=== PATIENT | female | born 1955 | race Caucasian/White ===

== ENCOUNTER 2016-05-30 14:22 | Inpatient (IN) ==
[2016-05-30 16:20] LABS: Basophils % 0.3 %; Eosinophils # 0.1 K/mcL (0.0-0.6); Eosinophils % 1.4 %; Hematocrit 36.7 % (35.3-44.9); Hemoglobin 12.3 g/dL (11.5-15.4); Immature Granulocytes % 0.4 % (0-4); Lymphocytes # 2.2 K/mcL (0.6-4.6); Lymphocytes % 31.8 %; Mean Corpuscular HGB Conc 33.5 g/dL (31.6-35.5); Mean Corpuscular Hemoglobin 31.4 pg (28.0-33.3); Mean Corpuscular Volume 93.6 fL (83.0-100.0); Mean Platelet Volume 10.5 fL (9.4-12.4); Monocytes # 0.6 K/mcL (0.0-1.3); Monocytes % 7.8 %; Neutrophils # 4.1 K/mcL (1.6-8.9); Platelet Count 192 K/mcL (140-400); Red Blood Count 3.92 M/mcL (3.82-4.97); Red Cell Distribution Width 15.6 % (11.5-14.5); Segmented Neutrophils % 58.3 %
[2016-05-30 16:30] LABS: Alanine Aminotransferase 12 Units/L (0-55); Albumin 3.6 g/dL (3.5-5.0); Albumin/Globulin Ratio 1.1 (1.1-2.2); Alkaline Phosphatase 59 Units/L (38-126); Aspartate Amino Transferase 14 Units/L (5-34); BUN/Creatinine Ratio 14 (6-26); Bilirubin,Total 0.7 mg/dL (0.2-1.2); Blood Urea Nitrogen 14 mg/dL (7-20); C-Reactive Protein 10 mg/L (Less than 5); Carbon Dioxide 29 mEq/L (19-29); Chloride 106 mEq/L (98-109); Globulin 3.2 g/dL (2.4-3.5); Glucose 103 mg/dL (70-99); Osmolality,Calculated 295 (280-300); Potassium 3.5 mEq/L (3.5-4.5); Sodium 142 mEq/L (136-145); Total Protein 6.8 g/dL (6.0-8.3); eGFR For African Americans > 60 (> 60); eGFR For Non-African Americans 55 (> 60)
[2016-05-30 16:34] LABS: INR 1.1; Prothrombin Time 12.1 Seconds (9.4-12.1)
[2016-05-30 16:36] LABS: Activated Partial Thrombo Time 30.3 Seconds (26.0-36.0)
[2016-05-30] MEDS: Heparin 25,000 UNIT/500 ML D5W 25,000 UNIT/500 ML MLS IVC SCH (17:31)
--- NOTE | 2016-05-30 17:31 | Emergency Department Note ---
Disposition Clinical Impression: Ischemia of right upper extremity Disposition: Admitted As Inpatient Condition: Good Referrals: Fernandez Ken DO [Primary Care Provider] - Forms: Work/School Release, ED Satisfaction Letter General Adult HPI - General Chief complaint: ED General Medical Stated complaint: Dr. Cox wants admitted for ECHO and angiogram Time Seen by Provider: 05/30/16 15:27 Source: patient Limitations: no limitations Nursing Notes Reviewed: Yes Vital Signs Reviewed: Yes - History of Present Illness HPI Narrative: Patient presents to complaint of pain and numbness to her right ring finger. Symptoms started on 05/15/2016. Patient denies any trauma. Patient has been to multiple doctors for this problem and has not found a clear etiology. Patient followed up with Dr. Cox in his office and he sent the patient to respond for further evaluation. Patient denies shortness of breath denies fevers and chills. Patient denies any other signs or symptoms associated. Patient denies any dizziness associated Pain Scale: 0 - Related Data Home Medications Medication Instructions Recorded Confirmed Atenolol [Tenormin] 50 mg PO BID 05/30/16 05/30/16 Flecainide 100 mg PO Q12HR 05/30/16 05/30/16 Folic Acid 1 mg PO BID 05/30/16 05/30/16 Meclizine HCl [Verticalm] 25 mg PO HS 05/30/16 05/30/16 Methotrexate [Otrexup] 25 mg PO ADAMS 05/30/16 05/30/16 Omeprazole [PriLOSEC] 40 mg PO DAILY 05/30/16 05/30/16 Oxycodone HCl/Acetaminophen 1 each PO Q6H PRN 05/30/16 05/30/16 [Percocet 5-325 mg Tablet] PredniSONE 10 mg PO DAILY 05/30/16 05/30/16 Promethazine [Phenergan] 25 mg PO Q6H PRN 05/30/16 05/30/16 Ranitidine HCl [Acid [employer]ician] 150 mg PO HS 05/30/16 05/30/16 Sulfasalazine [Azulfidine] 500 mg PO BID 05/30/16 05/30/16 Venlafaxine XR (24 HR) [Effexor XR] 75 mg PO DAILY 05/30/16 05/30/16 Allergies Allergy/AdvReac Type Severity Reaction Status Date / Time azithromycin [From Zithromax] AdvReac Nausea Verified 05/30/16 14:30 infliximab [From Remicade] AdvReac See Verified 05/30/16 14:30 Comments All systems ED: reviewed and negative except as stated. Past Medical History - Past Medical History Source: patient Medical history: Reports: atrial fibrillation Psychiatric history: Reports: no psych history - Social History Smoking Status: Never smoker Smokeless Tobacco Status: No Alcohol use: Reports: none Drug use: Reports: none Physical Exam - General Limitations: no limitations General appearance: alert, in no apparent distress - Head Head exam: atraumatic, normocephalic, normal inspection - Eye Eye exam: Present: normal appearance, PERRL, EOMI - ENT ENT exam: normal exam, normal oropharynx, mucous membranes moist - Neck Neck exam: Present: normal inspection, full ROM, trachea midline - Chest Chest inspection: Present: normal inspection, symmetric chest wall rise - Respiratory Respiratory exam: Present: normal lung sounds bilaterally - Cardiovascular Cardiovascular exam: Present: irregular rhythm, normal heart sounds - Abdominal Exam Abdominal exam: Present: soft, Non-Tender. Absent: tenderness, distention, guarding, rebound, rigidity - Extremities Exam Extremities exam: Present: other (Swelling of the distal portion of right digit distal phalanx.) - Back Exam Back exam: Present: normal inspection, full ROM. Absent: tenderness - Neurological Exam Neurological exam: Present: alert, oriented X3 - Psychiatric Psychiatric exam: Present: normal affect, normal mood - Skin Skin exam: Present: warm, dry, intact, normal color Course Course Narrative: Discussed this case with Dr. Cxo. He was able to fill an additional history that was missing. He feels the patient has a underlying etiology and he feels that she needs further workup. So will admit patient to the hospitalist service for further care workup Vital Signs Temperature 99.1 F 05/30/16 14:30 Pulse Rate 85 05/30/16 14:30 Respiratory Rate 18 05/30/16 14:30 Blood Pressure 172/95 05/30/16 14:30 O2 Sat by Pulse Oximetry 95 05/30/16 14:30 Temperature 99.1 F 05/30/16 14:30 Pulse Rate 85 05/30/16 14:30 Respiratory Rate 18 05/30/16 14:30 Blood Pressure 172/95 05/30/16 14:30 O2 Sat by Pulse Oximetry 95 05/30/16 14:30 Oxygen Delivery Oxygen Delivery Room Air Medical Decision Making - Differential Diagnosis Limb ischemia, cellulitis, osteomyelitis, trauma - Lab Data Result diagrams: 05/30/16 16:00 05/30/16 16:00 Lab Results 05/30/16 05/30/16 05/30/16 Range/Units 16:00 16:00 16:00 WBC 7.0 (4.3-11.1) K/mcL RBC 3.92 (3.82-4.97) M/mcL Hgb 12.3 (11.5-15.4) g/dL Hct 36.7 (35.3-44.9) % MCV 93.6 (83.0-100.0) fL MCH 31.4 (28.0-33.3) pg MCHC 33.5 (31.6-35.5) g/dL RDW 15.6 H (11.5-14.5) % Plt Count 192 (140-400) K/mcL MPV 10.5 (9.4-12.4) fL Immature Gran % 0.4 (0-4) % Seg Neutrophils % 58.3 % Lymphocytes % 31.8 % Monocytes % 7.8 % Eosinophils % 1.4 % Basophils % 0.3 % Neutrophils # 4.1 (1.6-8.9) K/mcL Lymphocytes # 2.2 (0.6-4.6) K/mcL Monocytes # 0.6 (0.0-1.3) K/mcL Eosinophils # 0.1 (0.0-0.6) K/mcL Basophils # 0.0 (0.0-0.2) K/mcL ESR 21 H (0-15) mm/hr PT 12.1 (9.4-12.1) Seconds INR 1.1 APTT 30.3 (26.0-36.0) Seconds Sodium (136-145) mEq/L Potassium (3.5-4.5) mEq/L Chloride (98-109) mEq/L Carbon Dioxide (19-29) mEq/L BUN (7-20) mg/dL Creatinine (0.57-1.11) mg/dL Est GFR ( Amer) (> 60) Est GFR (Non-Af Amer) (> 60) BUN/Creatinine Ratio (6-26) Glucose (70-99) mg/dL Calculated Osmolality (280-300) Calcium (8.6-10.8) mg/dL Total Bilirubin (0.2-1.2) mg/dL AST (5-34) Units/L ALT (0-55) Units/L Alkaline Phosphatase (38-126) Units/L C-Reactive Protein (Less than 5) mg/L Serum Total Protein (6.0-8.3) g/dL Albumin (3.5-5.0) g/dL Globulin (2.4-3.5) g/dL Albumin/Globulin Ratio (1.1-2.2) 05/30/16 Range/Units 16:00 WBC (4.3-11.1) K/mcL RBC (3.82-4.97) M/mcL Hgb (11.5-15.4) g/dL Hct (35.3-44.9) % MCV (83.0-100.0) fL MCH (28.0-33.3) pg MCHC (31.6-35.5) g/dL RDW (11.5-14.5) % Plt Count (140-400) K/mcL MPV (9.4-12.4) fL Immature Gran % (0-4) % Seg Neutrophils % % Lymphocytes % % Monocytes % % Eosinophils % % Basophils % % Neutrophils # (1.6-8.9) K/mcL Lymphocytes # (0.6-4.6) K/mcL Monocytes # (0.0-1.3) K/mcL Eosinophils # (0.0-0.6) K/mcL Basophils # (0.0-0.2) K/mcL ESR (0-15) mm/hr PT (9.4-12.1) Seconds INR APTT (26.0-36.0) Seconds Sodium 142 (136-145) mEq/L Potassium 3.5 (3.5-4.5) mEq/L Chloride 106 (98-109) mEq/L Carbon Dioxide 29 (19-29) mEq/L BUN 14 (7-20) mg/dL Creatinine 1.02 (0.57-1.11) mg/dL Est GFR ( Amer) > 60 (> 60) Est GFR (Non-Af Amer) 55 L (> 60) BUN/Creatinine Ratio 14 (6-26) Glucose 103 H (70-99) mg/dL Calculated Osmolality 295 (280-300) Calcium 9.0 (8.6-10.8) mg/dL Total Bilirubin 0.7 (0.2-1.2) mg/dL AST 14 (5-34) Units/L ALT 12 (0-55) Units/L Alkaline Phosphatase 59 (38-126) Units/L C-Reactive Protein 10 H (Less than 5) mg/L Serum Total Protein 6.8 (6.0-8.3) g/dL Albumin 3.6 (3.5-5.0) g/dL Globulin 3.2 (2.4-3.5) g/dL Albumin/Globulin Ratio 1.1 (1.1-2.2)
[2016-05-30] MEDS ORDERED: Acetaminophen 325 MG TABLET PO PRN (18:53)
[2016-05-30] MEDS ORDERED: Ondansetron 4 MG/2 ML VIAL IVP PRN (18:53)
[2016-05-30] MEDS ORDERED: Naloxone 0.4 MG/ML INJ IVP PRN (18:53)
--- NOTE | 2016-05-30 19:11 | Event Note ---
Date of Encounter: 05/30/16 Time of Encounter: 18:58 Patient seen and examined with nurse practitioner. Agree with assessment and plan. Patient with long-standing history over each of fibrillation multiple anticoagulation or antiplatelet medications presents with ischemia involving the distal phalanx of the right ring finger in the form of fixed color changes coldness pain paresthesia limitation of movement. There is decrease capillary circulation on exam review pulsations is intact. Possibility of this presentation include acute ischemia related to embolism from atrial fibrillation. Other possibility include vasculitis. She has underlying rheumatoid arthritis. will check inflammatory markers. .Presentation not typical for raynauld's phenomena as symptoms have been constant over the past 2 weeks no fluctuation in symptoms and signs and no relation with cold or warm temperature. Patient will be started on high dose heparin drip, aspirin and statin. Vascular surgery consultation. She will need an angiography for evaluation of hand circulation.
[2016-05-30] MEDS ORDERED: *HR* Heparin 5,000 UNIT/ML VIAL IVP PRN ×2 (19:13)
[2016-05-30] MEDS ORDERED: NIFEdipine XL (24 HR) 30 MG TAB.ER.24 PO SCH (19:30)
--- NOTE | 2016-05-30 19:32 | Internal Med History&Physical ---
Date of Encounter: 05/30/16 Time of Encounter: 18:30 Assessment and Plan (1) Ischemia of finger Current visit: Yes Status: Acute 1 patient has been experiencing discoloration as well as paresthesia and pain to right ring finger. Possibly related to embolic since patient has a history of atrial fibrillation and is not on any anticoagulation. Also could be related to vasculitis patient has a history of rheumatoid arthritis. Patient was seen by Dr. Cox today she has been initiated on a heparin drip 2 consult vascular-Dr. Cox 3 we will give baby aspirin 4 we will make patient nothing by mouth after midnight for possible procedures in a.m. (2) Hypertension Current visit: Yes Status: Chronic 1 we will hold atenolol for now will start on Norvasc goal was to maintain systolic less than 140 Qualifiers: Hypertension type: essential hypertension Qualified Code(s): I10 - Essential (primary) hypertension (3) Atrial fibrillation Current visit: Yes Status: Chronic 1 presently in sinus rhythm we will continue with flecainide patient is not on any anticoagulation. We will give aspirin patient placed on heparin drip 2 continuous cardiac monitoring 3 obtain EKG Qualifiers: Atrial fibrillation type: paroxysmal Qualified Code(s): I48.0 - Paroxysmal atrial fibrillation (4) Rheumatoid arthritis Current visit: Yes Status: Chronic 1 continue with home medications Qualifiers: Rheumatoid arthritis location: hand Rheumatoid factor presence: unspecified presence Laterality: bilateral Qualified Code(s): M06.9 - Rheumatoid arthritis, unspecified Internal Medicine - H&P: HPI Chief complaint: discolored finger Admitted From: Emergency Dept Plans for Post Hospital Care: Home History of present illness: Ms. Mann is a 60 year old female with a past medical hx of RA, OA fibromyalagia, HTN, afib PUD. According to the patient on May 13 she noticed that the tip of R ring finger was discolored and painful, she went to the ED in [place], who took xrays and informed her that it was a bruise. The finger continued to be painful discolored and cool to touch. She went to her PCP who sent her to orthopedics, who then advised her to see vascular. She saw Dr Cox today who requested that the patient be admitted to a [facility] for further workup and evaluation. Patient denies any recent trauma history coagulopathy she is not on any anticoagulation and has a history atrial fibrillation. She was in her usual state of health prior to this incident denies any chest pain shortness of breath nausea vomiting diarrhea chills fevers. ER lab work revealed no leukocytosis chemistries and coags unremarkable CRP was 10. ER physician did speak with Dr. Cox he requested patient started on heparin drip and he will see patient upon consult. Presently the patient denies any chest pain or shortness of breath. Noted the patient sitting on side of bed lower extremities are ruborous toes are cool to touch. Once back in bed patient's color returns to our extremity however do note that tip of second toes bilaterally slightly cyanotic. Pedal pulses are strong bilaterally. Upon assessment note excuse me involving distal phalanx of the right ring finger fixed color changes tip cool to touch pain paresthesia limitation of movement. There is decreased capillary circulation strong radial pulses. I reviewed this case with Dr. Stack who agrees with plan it Past Med Surg Social Fam HX - Past Medical History Medical history: atrial fibrillation, fibromyalgia Psychiatric history: no psych history - Social History Smoking Status: Never smoker Smokeless Tobacco Status: No Alcohol use: none Drug use: none - Family History Father Living Status: Hx Family Cardiac Disorders: Yes (AK,HTN) Internal Medicine - H&P: Meds Atenolol [Tenormin] 50 mg PO BID 05/30/16 [History] Flecainide 100 mg PO Q12HR 05/30/16 [History] Folic Acid 1 mg PO BID 05/30/16 [History] Meclizine HCl [Verticalm] 25 mg PO HS 05/30/16 [History] Methotrexate [Otrexup] 25 mg PO ADAMS 05/30/16 [History] Omeprazole [PriLOSEC] 40 mg PO DAILY 05/30/16 [History] Oxycodone HCl/Acetaminophen [Percocet 5-325 mg Tablet] 1 each PO Q6H PRN [History] PredniSONE 10 mg PO DAILY 05/30/16 [History] Promethazine [Phenergan] 25 mg PO Q6H PRN 05/30/16 [History] Ranitidine HCl [Acid After School Teacher] 150 mg PO HS 05/30/16 [History] Sulfasalazine [Azulfidine] 500 mg PO BID 05/30/16 [History] Venlafaxine XR (24 HR) [Effexor XR] 75 mg PO DAILY 05/30/16 [History] Allergies azithromycin [From Zithromax] Adverse Reaction (Verified 05/30/16 14:30) Nausea infliximab [From Remicade] Adverse Reaction (Verified 05/30/16 14:30) See Comments All Systems PM: A 10-system review of systems was performed and is negative for pertinent findings except as documented above in the HPI. - Constitutional Constitutional: no chills, no fever(s), no night sweats - EENT Eyes: no change in vision, no discharge, no pain, no photophobia Nose, mouth and throat: no dysphagia, no nasal discharge, no neck pain, no sore throat - Cardiovascular Cardiovascular ROS IM: no chest pain, no diaphoresis, no dyspnea, no lightheadedness, no palpitations, no syncope - Respiratory Respiratory: no cough, no dyspnea, no wheezing, no excessive phlegm production - Gastrointestinal Gastrointestinal: no abdominal pain, no diarrhea, no hematemesis, no hematochezia, no melena, no nausea, no vomiting - Genitourinary Genitourinary: no change in urinary stream, no dysuria, no flank pain, no hematuria - Musculoskeletal Musculoskeletal ROS IM: no numbness, no tingling - Integumentary Additional comments: 1 discoloration to right ring finger - Neurological Neurological ROS: no confusion, no convulsions, no focal weakness, no numbness, no tingling, no tremor(s) - Hematologic/Lymphatic Hematologic/Lymphatic: no easy bruising - Constitutional Vitals: Temp Pulse Resp BP Pulse Ox 99.1 F 62 97 161/88 18 05/30/16 14:30 05/30/16 18:22 05/30/16 18:22 05/30/16 18:22 05/30/16 18:22 General appearance: Present: A&O X 3, answers questions appropriately - Head Head exam: Present: atraumatic, normocephalic - Eye Eye exam: Present: PERRL, conjuntiva pink, sclera anicteric Pupils: Present: PERRL - Neck Neck exam general surgery: Present: supple, trachea midline. Absent: lymphadenopathy - Respiratory Respiratory exam: Present: CTAB. Absent: accessory muscle use, rales, rhonchi, wheezes - Cardiovascular Cardiovascular exam: Present: RRR, +S1, +S2. Absent: diastolic murmur, gallop, rubs, systolic murmur - GI/Abdominal GI/Abdominal exam: Present: normal bowel sounds, soft, no peritoneal signs. Absent: distended, tenderness - Extremities Exam Extremities exam: Present: tenderness, warm, radial pulses palpable and symetrical. Absent: calf tenderness, cyanotic, pedal edema Additional comments: discoloration to right ring finger as well as to second toe to feet bilaterally - Neurological Exam Neurological exam: Present: CN II-XII intact, oriented X3, no focal deficits. Absent: pronater drift, facial droop, speech deficit - Skin Skin exam: Present: dry, intact Internal Med - H&P Results - Labs CBC & Chem 7: 05/30/16 19:30 05/30/16 16:00
[2016-05-30 19:40] LABS: Hemoglobin 12.9 g/dL (11.5-15.4); Mean Corpuscular HGB Conc 33.1 g/dL (31.6-35.5); Mean Corpuscular Hemoglobin 31.4 pg (28.0-33.3); Mean Corpuscular Volume 94.9 fL (83.0-100.0); Mean Platelet Volume 10.6 fL (9.4-12.4); Platelet Count 227 K/mcL (140-400); Red Blood Count 4.11 M/mcL (3.82-4.97); Red Cell Distribution Width 15.7 % (11.5-14.5)
[2016-05-30 19:48] LABS: INR 1.1; Prothrombin Time 12.4 Seconds (9.4-12.1)
[2016-05-30 19:51] LABS: Activated Partial Thrombo Time 38.8 Seconds (26.0-36.0)
[2016-05-30] MEDS: sulfaSALAzine 500 MG TABLET PO SCH (20:32)
[2016-05-30] MEDS: Famotidine 20 MG TABLET PO SCH (20:33)
[2016-05-30] MEDS: Folic Acid 1 MG TABLET PO SCH (20:33)
[2016-05-30] MEDS: Aspirin Enteric Coated 81 MG Tablet PO SCH (20:34)
[2016-05-30] MEDS: *HR* HYDROcodone/Acet 5/325 mg TABLET PO PRN (22:17)
[2016-05-31 01:10] LABS: Basophils % 0.3 %; Eosinophils # 0.1 K/mcL (0.0-0.6); Eosinophils % 1.5 %; Hematocrit 36.4 % (35.3-44.9); Hemoglobin 11.8 g/dL (11.5-15.4); Immature Granulocytes % 0.3 % (0-4); Lymphocytes # 2.5 K/mcL (0.6-4.6); Lymphocytes % 37.2 %; Mean Corpuscular HGB Conc 32.4 g/dL (31.6-35.5); Mean Corpuscular Hemoglobin 31.5 pg (28.0-33.3); Mean Corpuscular Volume 97.1 fL (83.0-100.0); Mean Platelet Volume 10.9 fL (9.4-12.4); Monocytes # 0.5 K/mcL (0.0-1.3); Monocytes % 7.9 %; Neutrophils # 3.5 K/mcL (1.6-8.9); Platelet Count 157 K/mcL (140-400); Red Blood Count 3.75 M/mcL (3.82-4.97); Red Cell Distribution Width 15.6 % (11.5-14.5); Segmented Neutrophils % 52.8 %
[2016-05-31 01:23] LABS: BUN/Creatinine Ratio 13 (6-26); Blood Urea Nitrogen 14 mg/dL (7-20); Carbon Dioxide 26 mEq/L (19-29); Chloride 106 mEq/L (98-109); Glucose 131 mg/dL (70-99); Osmolality,Calculated 294 (280-300); Potassium 3.4 mEq/L (3.5-4.5); Sodium 141 mEq/L (136-145); eGFR For African Americans > 60 (> 60); eGFR For Non-African Americans 53 (> 60)
[2016-05-31] MEDS: *HR* Morphine 2 MG/ML SYRINGE IVP PRN (02:01)
[2016-05-31] MEDS ORDERED: *HR* Labetalol 20 MG/4 ML SYRINGE IVP PRN (02:17)
[2016-05-31 08:34] LABS: Activated Partial Thrombo Time 196.8 Seconds (26.0-36.0)
[2016-05-31 08:38] LABS: Heparin anti-factor XA UFH 0.93 IU/mL (0.30-0.70)
[2016-05-31] MEDS: Aspirin Enteric Coated 81 MG Tablet PO SCH ×2 (09:13→09:20)
[2016-05-31] MEDS: predniSONE 10 MG TABLET PO SCH (09:19)
[2016-05-31] MEDS: sulfaSALAzine 500 MG TABLET PO SCH ×2 (09:20→21:16)
[2016-05-31] MEDS: Venlafaxine XR (24 HR) 75 MG CAP.ER.24H PO SCH (09:20)
[2016-05-31] MEDS: *HR* HYDROcodone/Acet 5/325 mg TABLET PO PRN ×2 (09:20→21:16)
[2016-05-31] MEDS: Folic Acid 1 MG TABLET PO SCH ×2 (09:20→21:16)
--- NOTE | 2016-05-31 10:01 | Vascular/Endovasc Consult Note ---
Date of Encounter: 05/31/16 Time of Encounter: 09:58 Assessment and Plan (1) Ischemia of finger Current Visit: Yes Status: Acute Acute onset of right ring finger ischemia dating to May 13. Recommend echocardiogram Recommend cardiology consultation for atrial fibrillation and further recommendations regarding treatment and anticoagulation Recommend orthopedic hand surgery consultation for long-term follow-up for ischemic finger I will consider angiography of right upper extremity extremity and hand tomorrow pending the results of further workup and echocardiogram. The patient may be a candidate for catheter directed thrombo-lysis or intra-arterial vasodilator. The patient may have topical nitroglycerin applied to finger once the patient has been seen by the other consultants. - History of Present Illness Consult date: 05/31/16 Consult reason: Ischemic right ring finger Chief complaint: Discoloration and pain of right ring finger History of present illness: Ms. Mann is a 60 year old female Who was seen in my office yesterday on referral from her primary care office in [facility] for urgent evaluation of right hand symptoms. The patient states that she had an abrupt onset of skin changes and pain in the right ring finger on May 13. This is been progressive. She has had significant discomfort that has been unrelenting since that time. She has seen a total of 4 different physicians including urgent care, emergency room, primary care, and orthopedics at the [facility]. The patient denies any history of trauma to this area. She has not had any previous similar symptoms. The patient does have a history of atrial fibrillation dating back to about 2007. This is presently controlled with atenolol and [place] and applied. The patient is unaware of previous treatments. She does not know the results of any recent echocardiograms. The patient was not placed on anticoagulation for her atrial fibrillation. The patient has not had any noninvasive testing of the hand but she did have x- rays which showed diffuse arthritic changes. She does have a history of rheumatoid arthritis. Past Med Surg Social Fam HX - Past Medical History Medical history: atrial fibrillation, fibromyalgia Psychiatric history: no psych history - Past Surgical History Surgical History: cholecystectomy, knee replacement - Social History Smoking Status: Never smoker Smokeless Tobacco Status: No Alcohol use: none Drug use: none - Family History Father Living Status: Hx Family Cardiac Disorders: Yes (OR,HTN) Medications and Allergies Atenolol [Tenormin] 50 mg PO BID 05/30/16 [History] Flecainide 100 mg PO Q12HR 05/30/16 [History] Folic Acid 1 mg PO BID 05/30/16 [History] Meclizine HCl [Verticalm] 25 mg PO HS 05/30/16 [History] Methotrexate [Otrexup] 25 mg PO ADAMS 05/30/16 [History] Omeprazole [PriLOSEC] 40 mg PO DAILY 05/30/16 [History] Oxycodone HCl/Acetaminophen [Percocet 5-325 mg Tablet] 1 each PO Q6H PRN [History] PredniSONE 10 mg PO DAILY 05/30/16 [History] Promethazine [Phenergan] 25 mg PO Q6H PRN 05/30/16 [History] Ranitidine HCl [Acid Test Lead] 150 mg PO HS 05/30/16 [History] Sulfasalazine [Azulfidine] 500 mg PO BID 05/30/16 [History] Venlafaxine XR (24 HR) [Effexor XR] 75 mg PO DAILY 05/30/16 [History] Allergies azithromycin [From Zithromax] Adverse Reaction (Verified 05/30/16 14:30) Nausea infliximab [From Remicade] Adverse Reaction (Verified 05/30/16 14:30) See Comments All Systems Review: A 10-system review of systems was performed and is negative for pertinent findings except as documented above in the HPI. Exam Vital Signs, Last 4 Hours Temp Pulse Resp BP Pulse Ox 05/31/16 09:03 95 05/31/16 06:44 97.9 F 68 18 114/62 95 General: Present: Conversant, Well developed, Well nourished, Other (Obese) HEENT: Present: Atraumatic, Normocephaly Cardiac: Present: Reg Rate and Rhythm, Normal S1 and S2 Lungs: Present: Normal Breath Sounds Neuro: Present: Alert and responsive, No focal deficits noted Abdomen: Present: Soft, Non-tender Vascular: Present: Pulse, normal, Cyanosis (Cyanosis of left distal phalanx. The mid and proximal phalanx are improved in color since her clinic visit yesterday and since initiation of heparin.) Consult Discharge Plan - Plan Referrals: Fernandez Ken DO [Primary Care Provider] -
[2016-05-31] MEDS ORDERED: methylPREDNISolone 125 MG/2 ML VIAL IVP ONE (10:31)
[2016-05-31] MEDS ORDERED: D5% in Water 1,000 ML IVC PRN (10:53)
[2016-05-31] MEDS ORDERED: Dextrose Gel 15 GM PO PRN ×2 (10:53)
[2016-05-31] MEDS ORDERED: *HR* Dextrose 50 % in Water (Syg) 50 ML SYRINGE IVP PRN (10:53)
[2016-05-31] MEDS: Insulin LISPRO 300 UNITS/3 ML VIAL SQ SCH ×3 (12:14→21:16)
--- NOTE | 2016-05-31 12:43 | Cardiology Consult Note ---
Date of Encounter: 05/31/16 Time of Encounter: 12:39 Assessment and Plan (1) Ischemia of right upper extremity Current Visit: Yes Status: Acute Per Cardiology: Vascular following. Patient reports possible right arm angiogram tomorrow. (2) PAF (paroxysmal atrial fibrillation) Current Visit: Yes Status: Chronic Per Cardiology: Past history of paroxysmal atrial fibrillation with rhythm control strategy of flecainide be managed by her primary refining engineer Dr. Laguerre in [place]. ECG shows sinus rhythm at 69 with QRS 138 ms and QT/QTC 450/468 ms. Echo pending. Regarding long-term anticoagulation, [id number]= 1 (Female). Patient apparently unaware of need for anticoagulation for her afib and on flecanide. She reports she's been instructed to take aspirin by her primary refining engineer, but has not been taking for some time due to reported "eye clots" with aspirin. Currently being started on IV heparin drip with concerns of right ring finger thrombosis. Discussed and reviewed with Dr. Antonio, we'll need to address long- term anticoagulation prior to discharge. Discussion w patient/family: The assessment and plan as outlined above was discussed with the patient who expressed understanding and agreement. All questions were answered. Thank you for involving us in the care of your patient. Please call with any questions. History of Present Illness Consult date: 05/31/16 Requesting physician: Christopher Cox Consult reason: Hx of Afib Chief complaint: R finger pain History of present illness: Previous records reviewed: "Ms. Mann is a 60 year old female with a past medical hx of RA, OA fibromyalagia, HTN, afib PUD. According to the patient on May 13 she noticed that the tip of R ring finger was discolored and painful, she went to the ED in [place], who took xrays and informed her that it was a bruise. The finger continued to be painful discolored and cool to touch. She went to her PCP who sent her to orthopedics, who then advised her to see vascular. She saw Dr Cox today who requested that the patient be admitted to a [facility] for further workup and evaluation. Patient denies any recent trauma history coagulopathy she is not on any anticoagulation and has a history atrial fibrillation. She was in her usual state of health prior to this incident denies any chest pain shortness of breath nausea vomiting diarrhea chills fevers ". Cardiology consult d/t hx of afib and not on AC. Patient reports known history of atrial fibrillation and on flecainide being managed by her primary refining engineer Dr. Laguerre in [place]. Patient confirms history of present illness as above. She denies any chest pain, shortness of breath, palpitations. Reports has not been on anticoagulation in terms of Coumadin or DOACs. She reports her primary refining engineer structure her take aspirin, however has been unable to take due to developing "blood clots in her eyes". She reports pending follow-up with her primary refining engineer scheduled actually tomorrow. She denies any history of CAD, ICD, pacemaker, or history of CVA or TIA. Past Med Surg Social Fam HX - Past Medical History Attestation: Yes The following information was validated with the patient. Source: patient, old records reviewed Medical history: atrial fibrillation, fibromyalgia Psychiatric history: no psych history - Past Surgical History Surgical History: cholecystectomy, knee replacement - Social History Smoking Status: Never smoker Smokeless Tobacco Status: No Alcohol use: none Drug use: none - Family History Father Living Status: Hx Family Cardiac Disorders: Yes (ID,HTN) Medications and Allergies Atenolol [Tenormin] 50 mg PO BID 05/30/16 [History] Flecainide 100 mg PO Q12HR 05/30/16 [History] Folic Acid 1 mg PO BID 05/30/16 [History] Meclizine HCl [Verticalm] 25 mg PO HS 05/30/16 [History] Methotrexate [Otrexup] 25 mg PO ADAMS 05/30/16 [History] Omeprazole [PriLOSEC] 40 mg PO DAILY 05/30/16 [History] Oxycodone HCl/Acetaminophen [Percocet 5-325 mg Tablet] 1 each PO Q6H PRN [History] PredniSONE 10 mg PO DAILY 05/30/16 [History] Promethazine [Phenergan] 25 mg PO Q6H PRN 05/30/16 [History] Ranitidine HCl [Acid Life Skills Educator] 150 mg PO HS 05/30/16 [History] Sulfasalazine [Azulfidine] 500 mg PO BID 05/30/16 [History] Venlafaxine XR (24 HR) [Effexor XR] 75 mg PO DAILY 05/30/16 [History] Allergies azithromycin [From Zithromax] Adverse Reaction (Verified 05/30/16 14:30) Nausea infliximab [From Remicade] Adverse Reaction (Verified 05/30/16 14:30) See Comments All Systems Review: A 10-system review of systems was performed and is negative for pertinent findings except as documented above in the HPI. - Cardiovascular Cardiovascular: as per HPI - Musculoskeletal Musculoskeletal: other (R ring finger pain and discoloration) Physical Examination Vital Signs, Last 4 Hours Temp Pulse Resp BP Pulse Ox 05/31/16 10:53 99.1 F 72 19 116/61 98 05/31/16 09:03 95 General: Conversant, No Apparent Distress HEENT: Atraumatic, Normocephaly, Mucus Membranes Moist Cardiac: Reg Rate and Rhythm, Normal S1 and S2, No Murmur Lungs: Normal Breath Sounds, No Wheeze, Rales, Rhonchi Neuro: Alert and responsive, No focal deficits noted Abdomen: Soft, Non-Tender Skin: Other (R ring finger with blusih discoloration) Extremities: No Edema, Normal Pulses Results 05/31/16 01:03 05/31/16 01:03 Lab Results Laboratory Tests 05/30/16 05/30/16 05/31/16 16:00 16:00 07:42 INR 1.1 AST 14 ALT 12 Troponin I 0.01 Impressions Spine Flexion/Extension X-Ray 05/31/16 09:29 IMPRESSION: 1. Normal cervical spine alignment with mild C6-7 degenerative disc and joint disease. 2. Normal alignment with no evidence of instability on flexion/extension. 3. No acute osseous abnormality or evidence of erosions. D/ / 05/31/2016 10:27:33 Etienne Brown MD / Bernadette Hsu Interpreting Provider: Etienne Brown MD Finger X-Ray 05/31/16 10:43 IMPRESSION: Negative radiographs of the right 4th finger D/ / Milton Wooten MD / Milton Wooten MD Interpreting Provider: Milton Wooten MD Active Medications Acetaminophen (Tylenol) 650 mg PO Q6HR PRN PRN Reason: Mild Pain (1-3) Stop: 11/29/16 18:54 Acetaminophen/Hydrocodone Bitart ([place] 5-325 Mg) 1 tab PO Q4HR PRN PRN Reason: Moderate Pain (4-6) Stop: 11/29/16 18:54 Last Admin: 05/31/16 09:20 Dose: 1 tab Aspirin (Aspirin Ec) 81 mg PO DAILY JESUS Stop: 11/29/16 19:16 Last Admin: 05/31/16 09:20 Dose: 81 mg Dextrose/Water (Dextrose 50% (Syg)) 25 ml IVP AD PRN PRN Reason: Hypoglycemia Stop: 11/30/16 10:54 Famotidine (Pepcid) 20 mg PO HS [facility] Stop: 11/29/16 21:01 Last Admin: 05/30/16 20:33 Dose: 20 mg Flecainide Acetate (Flecainide) 100 mg PO Q12HR JESUS Stop: 11/30/16 06:01 Last Admin: 05/31/16 05:43 Dose: 100 mg Folic Acid (Folic Acid) 1 mg PO BID [facility] Stop: 11/29/16 21:01 Last Admin: 05/31/16 09:20 Dose: 1 mg Glucagon (Glucagen) 1 mg IM ONCE PRN PRN Reason: Hypoglycemia Stop: 11/30/16 10:54 Glucose (Gluctose) 15 gm PO ONCE PRN PRN Reason: Hypoglycemia Stop: 11/30/16 10:54 Glucose (Gluctose) 30 gm PO ONCE PRN PRN Reason: Hypoglycemia Stop: 11/30/16 10:54 Heparin Sodium (Porcine) (Heparin) 8,400 unit 70 unit/kg (8400 unit) IVP Q6HR PRN PRN Reason: SEE COMMENTS Stop: 11/29/16 19:14 Last Admin: 05/31/16 01:43 Dose: 7,239.36 unit Heparin Sodium (Porcine) (Heparin) 4,200 unit 35 unit/kg (4200 unit) IVP Q6H PRN PRN Reason: SEE COMMENTS Stop: 11/29/16 19:14 Heparin Sodium/Dextrose (Heparin 25,000 Unit/500 Ml D5w) 25,000 unit in 500 mls @ 33.784 mls/hr IVC .[id number] JESUS; 14 UNIT/KG/HR PRN Reason: Protocol Stop: 11/29/16 17:16 Last Titration: 05/31/16 10:07 Dose: 8.66 unit/kg/hr, 20.9 mls/hr Dextrose (Dextrose 5%) 1,000 mls @ 100 mls/hr IVC .Q10H PRN PRN Reason: HYPOGLYCEMIA Stop: 11/30/16 10:54 Insulin Human Lispro (Humalog) 0 units SQ TIDAC JESUS PRN Reason: Protocol Stop: 11/30/16 11:31 Last Admin: 05/31/16 12:14 Dose: 2 units Insulin Human Lispro (Humalog) 0 units SQ HS JESUS PRN Reason: Protocol Stop: 11/30/16 21:01 Morphine Sulfate (Morphine Sulfate) 2 mg IVP Q4HR PRN PRN Reason: Severe Pain (7-10) Stop: 11/29/16 18:54 Last Admin: 05/31/16 02:01 Dose: 2 mg Naloxone HCl (Narcan) 0.4 mg IVP Q2MIN PRN PRN Reason: Opioid Reversal Stop: 11/29/16 18:54 Nifedipine (Procardia Xl) 60 mg PO DAILY [facility] PRN Reason: Protocol Stop: 11/30/16 20:31 Omeprazole (Prilosec) 40 mg PO DAILY [facility] Stop: 11/30/16 09:01 Last Admin: 05/31/16 09:20 Dose: 40 mg Ondansetron HCl (Zofran) 4 mg IVP Q8HR PRN PRN Reason: Nausea And Vomiting Stop: 11/29/16 18:54 Last Admin: 05/30/16 22:17 Dose: 4 mg Prednisone (Prednisone) 10 mg PO DAILY [facility] Stop: 11/30/16 09:01 Last Admin: 05/31/16 09:19 Dose: 10 mg Sulfasalazine (Sulfasalazine) 500 mg PO BID [facility] Stop: 11/29/16 21:01 Last Admin: 05/31/16 09:20 Dose: 500 mg Venlafaxine HCl (Effexor Xr) 75 mg PO DAILY [facility] Stop: 11/30/16 09:01 Last Admin: 05/31/16 09:20 Dose: 75 mg - Imaging and Cardiology Echo: pending - EKG Interpretation EKG results cardiology: personally reviewed, normal ECG, sinus rhythm Consult Discharge Plan - Plan Referrals: Fernandez Ken DO [Primary Care Provider] - 06/07/16 2:40 pm
--- NOTE | 2016-05-31 13:25 | Internal Med Progress Note ---
<Tanvir Mckenize - Last Filed: 05/31/16 17:16> Date of Encounter: 05/31/16 Time of Encounter: 09:20 - Assessment and plan (1) Ischemia of finger Current Visit: Yes Status: Acute Assessment and plan: -Patient was seen and examined today by vascular surgery (Dr. Cox) who recommend the followin) Echocardiogram 2) Cardiology consultation for atrial fibrillation and further ecommendations regarding treatment and anticoagulation. 3) Orthopedic Hand surgery consultation for long-term follow-up for this ischemic finger. Will consider angiograpy of the right upper extremity and hand tomorrow pending the results of further workup and echocardiogram. Patient may be a candidate for catheter directed thrombo-lysis or intra-arterial vasodilator. I consulted orthopedics and cardiology. Patient is currently on a calcium channel socorro. we may also consider nitropaste. (2) PAF (paroxysmal atrial fibrillation) Current Visit: Yes Status: Chronic Assessment and plan: -Patient has a history of paroxysmal atrial fibrillation controlled with Flecainide 100mg PO q12hr. currently in sinus rhythm. - Patient was not on anticoagulation prior to hospitalization. Patient now on weight base Heparin. -Pending cardiology recommendation (3) Elevated partial thromboplastin time (PTT) Current Visit: Yes Status: Acute Assessment and plan: - Elevated today at 196.8 - Heparin was held and will be resumed per protocol (4) Rheumatoid arthritis Current Visit: Yes Status: Chronic Assessment and plan: - Patient follows with Rheumatology at [facility] - Is on methotrexate 25mg PO, Prednisone 10mg PO qday and Sulfasalazine 500mg PO BID for her RA - Denies any known flares in the past couple of months - Due to the potential for General anesthesia/ procedures to her ischemic finger and history of Rheumatoid arthritis, we will obtain flexion and extension views of the cervical spine to look for any potential atlanto-axial instability. Qualifiers: Rheumatoid arthritis location: hand Rheumatoid factor presence: unspecified presence Laterality: bilateral Qualified Code(s): M06.9 - Rheumatoid arthritis, unspecified (5) Chest pain Current Visit: Yes Status: Acute Assessment and plan: - Patient describes a non-descript, non-radiating diffuse chest pain over the anterior aspect of her thoracic wall. The pain is reproducible with palpation and respirations. She is at higher risk for CAD given her RA. however pain is noncardiac and reproducible on exam. Additionally there is a pleuritic component to the pain. - Will get EKG and Troponin X 1 Qualifiers: Qualified Code(s): R07.9 - Chest pain, unspecified (6) Neck pain Current Visit: Yes Status: Acute Assessment and plan: -The patient's neck pain sounds as though this could possibly be an RA flair. No fever, confusion, alteration in mentation to suggest an infectious etioogy. - In addition to her home RA medications, we will add a one time dose of Methyprednisolone 80mg IVP to see if that resolves her pain. - Cervical spine flexion/extension were normal with mild C6-7 degenerative disc and joint disease. Normal alignment with no evidence of instability on flexion/ extension. - We will continue to monitor. (7) Fibromyalgia Current Visit: Yes Status: Acute Assessment and plan: - Resume patient on Effexor Xr 75mg PO qday (8) Hypertension Current Visit: Yes Status: Chronic Assessment and plan: accelerated HTN likley from pain response. - Patient placed on Procardia XL 60mg PO qday now at goal Continue to montitor. Qualifiers: Hypertension type: essential hypertension Qualified Code(s): I10 - Essential (primary) hypertension (9) Elevated glucose level Current Visit: Yes Status: Acute Assessment and plan: - Elevated glucose at 131. Likely steroid induced. Sliding scale for coverage as we will be giving her more steroids . - ADA diet (10) Obesity Current Visit: Yes Status: Acute Assessment and plan: - BMI 44.1 -Advise weight loss Qualifiers: Qualified Code(s): E66.9 - Obesity, unspecified (11) Hypokalemia Current Visit: Yes Status: Acute Assessment and plan: mild hypokalemia (12) Chronic use of steroids Current Visit: Yes Status: Acute Assessment and plan: likely has adrenal suppression from medical terminologist use. would consider stress dose steroids if she dose have a surgical procedure. (13) DVT prophylaxis Current Visit: Yes Status: Acute Assessment and plan: on heparin gtt. - Subjective Interval history: Patient was seen and examined at bedside this morning. Patient states the her right fourth digit is very painful today. Additionally she states that her neck is very painful and has been for the past week. In regards to the neck pain, she states that she has been unable to rotate or side bend her neck for the past week. When asking if this was related to a possible rheumatoid flare she states that she was unsure. She denies any signs or symptoms of uveitis, any new skin rashes, or any new oral sores or ulcers. For her rheumatoid arthritis, she is seen by Rheumatology at [facility]. She is unsure if she has had any recent rheumatoid flares, however, she states that she has been in significant pain with her neck and her finger. Additionally, she admits to diffuse chest pain to palpation and respirations of her anterior thoracic wall which she just noticed today. Denies any radiation of this chest pain into her back or into either upper extremity. In regards to anticoagulation with her atrial fibrillation, she states that she has never been on any form of anticoagulation and she is unable to answer why. She denies ever having a significant gastrointestinal bleed, any brain bleeds or any other significant bleeding events. All of the patient's questions were answered. She denies any other complaints at this time. - Constitutional Vitals: Temp Pulse Resp BP Pulse Ox 99.1 F 72 19 116/61 98 05/31/16 10:53 05/31/16 10:53 05/31/16 10:53 05/31/16 10:53 05/31/16 10:53 General appearance: Present: A&O X 3, answers questions appropriately - Head Head exam: Present: atraumatic, normal inspection, normocephalic - Eye Eye exam: Present: EOMI, sclera anicteric Additional comments: No signs of uveitis. - Neck Neck exam general surgery: Present: supple, trachea midline. Absent: lymphadenopathy Additional comments: Limited range of motion with rotation and side bending secondary to pain. - Respiratory Respiratory exam: Present: CTAB. Absent: accessory muscle use, rales, rhonchi, wheezes - Cardiovascular Cardiovascular exam: Present: RRR, +S1, +S2, systolic murmur (Noticeable over the left second intercostal space. Murmur does radiate into her carotids.). Absent: gallop, rubs - GI/Abdominal GI/Abdominal exam: Present: normal bowel sounds, soft, no peritoneal signs. Absent: distended, tenderness - Extremities Exam Extremities exam: Present: radial pulses palpable and symetrical. Absent: pedal edema Additional comments: Erythema and cyanosis is noted on the right fourth digit. The erythema and cyanosis extends to the DIP joint. There is no cyanosis or erythema proximal to the DIP joint. There are no others other signs of ischemia in the digits of her upper and lower extremities. - Neurological Exam Neurological exam: Present: oriented X3, no focal deficits. Absent: facial droop, speech deficit - Skin Additional comments: There are no new skin rashes noted on inspection. There are apparent ischemic changes in the right fourth digit as noted above. Internal Medicine: Result - Labs CBC & Chem 7: 05/31/16 01:03 05/31/16 01:03 Labs: Short CBC 05/30/16 05/31/16 Range/Units 19:30 01:03 WBC 9.2 6.6 (4.3-11.1) K/mcL Hgb 12.9 11.8 (11.5-15.4) g/dL Hct 39.0 36.4 (35.3-44.9) % Plt Count 227 157 (140-400) K/mcL Neutrophils # 3.5 (1.6-8.9) K/mcL BMP 05/31/16 01:03 Sodium 141 Potassium 3.4 L Chloride 106 Carbon Dioxide 26 BUN 14 Creatinine 1.06 Glucose 131 H Calcium 9.0 Cardiac Enzymes 05/31/16 Range/Units 07:42 Troponin I 0.01 (0-0.03) ng/mL - ABG Interpretation ABG results: PT/INR, D-dimer PT 12.4 Seconds (9.4-12.1) H 05/30/16 19:30 - Impressions Impressions Spine Flexion/Extension X-Ray 05/31/16 09:29 IMPRESSION: 1. Normal cervical spine alignment with mild C6-7 degenerative disc and joint disease. 2. Normal alignment with no evidence of instability on flexion/extension. 3. No acute osseous abnormality or evidence of erosions. D/ / 05/31/2016 10:27:33 Etienne Brown MD / Bernadette Hsu Interpreting Provider: Etienne Brown MD Finger X-Ray 05/31/16 10:43 IMPRESSION: Negative radiographs of the right 4th finger D/ / Milton Wooten MD / Milton Wooten MD Interpreting Provider: Milton Wooten MD Consult Discharge Plan - Plan Referrals: Fernandez Ken DO [Primary Care Provider] - 06/07/16 2:40 pm <[email or web address] - Last Filed: 05/31/16 18:08> Date of Encounter: 05/31/16 - Constitutional Vitals: Temp Pulse Resp BP Pulse Ox 98.5 F 92 18 145/75 95 05/31/16 14:21 05/31/16 14:21 05/31/16 14:21 05/31/16 14:21 05/31/16 14:21 Internal Medicine: Result - Labs CBC & Chem 7: 05/31/16 01:03 05/31/16 01:03 Labs: Short CBC 05/30/16 05/31/16 Range/Units 19:30 01:03 WBC 9.2 6.6 (4.3-11.1) K/mcL Hgb 12.9 11.8 (11.5-15.4) g/dL Hct 39.0 36.4 (35.3-44.9) % Plt Count 227 157 (140-400) K/mcL Neutrophils # 3.5 (1.6-8.9) K/mcL BMP 05/31/16 01:03 Sodium 141 Potassium 3.4 L Chloride 106 Carbon Dioxide 26 BUN 14 Creatinine 1.06 Glucose 131 H Calcium 9.0 Cardiac Enzymes 05/31/16 Range/Units 07:42 Troponin I 0.01 (0-0.03) ng/mL - ABG Interpretation ABG results: PT/INR, D-dimer PT 12.4 Seconds (9.4-12.1) H 05/30/16 19:30 - Impressions Impressions Spine Flexion/Extension X-Ray 05/31/16 09:29 IMPRESSION: 1. Normal cervical spine alignment with mild C6-7 degenerative disc and joint disease. 2. Normal alignment with no evidence of instability on flexion/extension. 3. No acute osseous abnormality or evidence of erosions. D/ / 05/31/2016 10:27:33 Etienne Brown MD / Bernadette Hsu Interpreting Provider: Etienne Brown MD Finger X-Ray 05/31/16 10:43 IMPRESSION: Negative radiographs of the right 4th finger D/ / Milton Wootne MD / Milton Wooten MD Interpreting Provider: Milton Wooten MD - Attending Attestation I examined this patient and reviewed laboratory, imaging and all diagnostic data. My medical decision-making was reviewed with Dr Mckenzie - Resident Physician. I agree with the documented findings, disposition and treatment plan as described above
[2016-05-31] MEDS ORDERED: Potassium Chloride Elixir 20 MEQ/15 ML UDC PO ONE (14:46)
--- NOTE | 2016-05-31 14:47 | ECHO - Doppler Report ---
Echo with Saline Contrast Name: Adrianna Mann Date of Study: 05/31/2016 Date: 1955 Ht: 65.0 in Medical Record#: [id number] Age: 60 Wt: 265.0 lb Gender: Female BSA: 2.23 Order #: [id number] Location: [facility] Room #: [id number] Reading Physician: Alessandro Fischer MD, [facility] Car Repairer Apprentice: David Flores Ordering Physician: Tanvir Mckenzie DO Primary Physician: None Indications: Embolism of right upper extremity Impressions: Normal LV systolic function, LVEF 70%. Moderate concentric left ventricular hypertrophy. Mild left ventricular diastolic dysfunction. Normal right ventricular size and function. Mildly dilated left atrium. No evidence of intracardiac shunting with agitated saline contrast. No significant valvular dysfunction. No evidence of pulmonary hypertension. Left Ventricular Wall Motion: Rest Echo Findings All wall segments showed normal motion. Findings: Study Quality * Technically adequate exam. ECG Findings * Normal sinus rhythm. Left Ventricle * Normal LV systolic function, LVEF 70%. * Moderate concentric left ventricular hypertrophy. * Mild left ventricular diastolic dysfunction. Right Ventricle * Normal right ventricular size and function. Left Atrium * Mildly dilated left atrium. Right Atrium * Normal right atrial size. Interatrial Septum * No evidence of intracardiac shunting with agitated saline contrast. Aorta * Normally sized aortic root. Pericardium * There is no pericardial effusion present. IVC * The IVC is not well evaluated. Aortic Valve * Aortic valve not well visualized. * No aortic stenosis. * No aortic regurgitation. Mitral Valve * Mild mitral annular calcification * No mitral stenosis. * No mitral regurgitation. Tricuspid Valve * Normal tricuspid valve structure. * No tricuspid stenosis. * Trace tricuspid regurgitation. * No evidence of pulmonary hypertension. Pulmonic Valve * Pulmonic valve not well visualized. * No pulmonic stenosis. * No pulmonic regurgitation. History Hypertension Contrast: Agitated saline 20 ml. Measurements: BP: 116/ 61 2D Normal Values RVIDd: 3.00 cm IVSd: 1.50 cm 0.6 - 1.0 cm LVIDd: 4.40 cm 3.7 - 5.6 cm LVPWd: 1.50 cm 0.6 - 1.1 cm LVIDs: 2.60 cm 1.5 - 3.6 cm AO: 2.90 cm < 4.0 cm LA volume: 81 Mitral Valve Peak E:1.04 m/sec Peak A:1.32 m/sec E/A Ratio:0.8 Tricuspid Valve TV Regurg Peak Grad: 23.00mmHg TV Regurg Peak Manish: 2.40m/sec Updated by Alessandro Fischer MD, [facility] on 05/31/2016 2:40:52 PM electronically signed on 05/31/2016 2:41:21 PM with status of Final Wall Motion Beltran: 1=Normal, 2=Hypokinesis, 3=Akinesis, 4=Dyskinesis, 5=Aneurysmal, 6=Hyperkinetic, X=Not Visualized (Blank)=Missing
[2016-05-31] MEDS: Heparin 25,000 UNIT/500 ML D5W 25,000 UNIT/500 ML MLS IVC SCH (16:46)
--- NOTE | 2016-05-31 18:13 | Orthopedic Consult Note ---
Date of Encounter: 05/31/16 Time of Encounter: 12:00 Assessment and Plan (1) Ischemia of right upper extremity Current Visit: Yes Status: Acute I did discuss the diagnosis in detail with the patient. She does have ischemic changes to the right ring finger without gangrene or necrosis. My recommendation at this point would be to continue the vascular workup per Dr. Cox. She may get symptom relief from topical Nitropaste or a calcium channel socorro. No surgical intervention recommended at this point, but should she develop necrosis or gangrene then we will readdress surgical options including debridement or amputation. I will follow the patient clinically in the hospital and as an outpatient to track her clinical progress. History of Present Illness HPI: Ms. Mann is a 60 year old female with a history of rheumatoid arthritis and atrial fibrillation who was admitted from Dr. Cox's office due to ischemia of the right ring fingertip. She indicates that about 2-1/2-3 weeks ago she started noticing some decreased sensation and tingling to the tip of the ring finger. Within a few days there started to develop a purplish discoloration to the volar tip of the digit distal to the distal interphalangeal joint that has been persistent since. There is associated pain at the tip of his digit. No involvement of the other digits. Of note she is on methotrexate for the rheumatoid. No known vascular issues otherwise per the patient. The patient has no other complaints. No other associated signs or symptoms. There are no modifying factors to the pain. The patient has been admitted to Dr. Cox who is performing a number of vascular studies. I was asked to assist in evaluation and management to establish care with the patient regarding the ring finger. Past Med Surg Social Fam HX - Past Medical History Medical history: atrial fibrillation, fibromyalgia Psychiatric history: no psych history - Past Surgical History Surgical History: cholecystectomy, knee replacement - Social History Smoking Status: Never smoker Smokeless Tobacco Status: No Alcohol use: none Drug use: none - Family History Father Living Status: Hx Family Cardiac Disorders: Yes (RI,HTN) Medications and Allergies Atenolol [Tenormin] 50 mg PO BID 05/30/16 [History] Flecainide 100 mg PO Q12HR 05/30/16 [History] Folic Acid 1 mg PO BID 05/30/16 [History] Meclizine HCl [Verticalm] 25 mg PO HS 05/30/16 [History] Methotrexate [Otrexup] 25 mg PO ADAMS 05/30/16 [History] Omeprazole [PriLOSEC] 40 mg PO DAILY 05/30/16 [History] Oxycodone HCl/Acetaminophen [Percocet 5-325 mg Tablet] 1 each PO Q6H PRN [History] PredniSONE 10 mg PO DAILY 05/30/16 [History] Promethazine [Phenergan] 25 mg PO Q6H PRN 05/30/16 [History] Ranitidine HCl [Acid Sql Database Programmer] 150 mg PO HS 05/30/16 [History] Sulfasalazine [Azulfidine] 500 mg PO BID 05/30/16 [History] Venlafaxine XR (24 HR) [Effexor XR] 75 mg PO DAILY 05/30/16 [History] Allergies azithromycin [From Zithromax] Adverse Reaction (Verified 05/30/16 14:30) Nausea infliximab [From Remicade] Adverse Reaction (Verified 05/30/16 14:30) See Comments All Systems Reviewed: Constitutional and musculoskeletal systems were reviewed and are negative unless otherwise stated in history of present illness. Physical Exam - Constitutional Vitals: Temp Pulse Resp BP Pulse Ox 98.5 F 92 18 145/75 95 05/31/16 14:21 05/31/16 14:21 05/31/16 14:21 05/31/16 14:21 05/31/16 14:21 Constitutional -Vitals reviewed -The patient is well developed and well nourished. -Mood is pleasant. -The patient is well groomed. Psychiatric -The patient is fully alert and oriented x 3. Right upper extremity: Evaluation of the hand shows that the skin and soft tissue envelope is intact. There are notable rheumatoid deformities including ulnar deviation of the digits , a boutonniere thumb, and swan-neck deformities of the index through small fingers. On the ring finger there is purplish discoloration along the volar pad of the digit consistent with ischemic changes without any chantal necrosis. Proximal to the distal interphalangeal joint crease there are no skin color changes. The overlying skin is intact without ulceration. The dorsal portion of the digit is normal in coloration. Tenderness at the tip of the ring finger. She is able to actively flex and extend the interphalangeal joints of this digit. Sensation is intact at the tip of the digit. Diagnostic Imaging: I did personally review and interpret x-rays of the right ring finger which show no bony injuries or resorption. Results - Labs Result Diagrams: 05/31/16 01:03 05/31/16 01:03 Labs: Abnormal lab results RBC 3.75 M/mcL (3.82-4.97) L 05/31/16 01:03 RDW 15.6 % (11.5-14.5) H 05/31/16 01:03 ESR 21 mm/hr (0-15) H 05/30/16 16:00 PT 12.4 Seconds (9.4-12.1) H 05/30/16 19:30 APTT 49.8 Seconds (26.0-36.0) H D 05/31/16 14:38 Heparin Anti-Xa, Unfract 0.93 IU/mL (0.30-0.70) H 05/31/16 07:42 Potassium 3.4 mEq/L (3.5-4.5) L 05/31/16 01:03 Est GFR (Non-Af Amer) 53 (> 60) L 05/31/16 01:03 Glucose 131 mg/dL (70-99) H 05/31/16 01:03 POC Glucose 210 (58-89) H 05/31/16 05:54 C-Reactive Protein 10 mg/L (Less than 5) H 05/30/16 16:00 H & H 05/30/16 05/31/16 Range/Units 19:30 01:03 Hgb 12.9 11.8 (11.5-15.4) g/dL Hct 39.0 36.4 (35.3-44.9) % All other labs normal. Consult Discharge Plan - Plan Referrals: Fernandez Ken DO [Primary Care Provider] - 06/07/16 2:40 pm
[2016-05-31] MEDS: NIFEdipine XL (24 HR) 60 MG TAB.ER.24 PO SCH (21:16)
[2016-05-31] MEDS: Famotidine 20 MG TABLET PO SCH (21:16)
[2016-06-01 03:30] LABS: Basophils % 0.1 %; Hematocrit 33.5 % (35.3-44.9); Hemoglobin 11.2 g/dL (11.5-15.4); Immature Granulocytes % 0.5 % (0-4); Lymphocytes # 1.1 K/mcL (0.6-4.6); Lymphocytes % 13.5 %; Mean Corpuscular HGB Conc 33.4 g/dL (31.6-35.5); Mean Corpuscular Hemoglobin 31.5 pg (28.0-33.3); Mean Corpuscular Volume 94.1 fL (83.0-100.0); Mean Platelet Volume 11.5 fL (9.4-12.4); Monocytes # 0.6 K/mcL (0.0-1.3); Monocytes % 7.6 %; Neutrophils # 6.2 K/mcL (1.6-8.9); Platelet Count 187 K/mcL (140-400); Red Blood Count 3.56 M/mcL (3.82-4.97); Red Cell Distribution Width 15.2 % (11.5-14.5); Segmented Neutrophils % 78.3 %
[2016-06-01 03:39] LABS: BUN/Creatinine Ratio 17 (6-26); Blood Urea Nitrogen 19 mg/dL (7-20); Calcium 9.2 mg/dL (8.6-10.8); Carbon Dioxide 25 mEq/L (19-29); Chloride 108 mEq/L (98-109); Glucose 173 mg/dL (70-99); Osmolality,Calculated 298 (280-300); Sodium 141 mEq/L (136-145); eGFR For African Americans > 60 (> 60); eGFR For Non-African Americans 51 (> 60)
[2016-06-01 03:45] LABS: Potassium 4.5 mEq/L (3.5-4.5)
[2016-06-01] MEDS: sulfaSALAzine 500 MG TABLET PO SCH ×2 (09:08→22:25)
[2016-06-01] MEDS: Venlafaxine XR (24 HR) 75 MG CAP.ER.24H PO SCH (09:08)
[2016-06-01] MEDS: Aspirin Enteric Coated 81 MG Tablet PO SCH (09:08)
[2016-06-01] MEDS: predniSONE 10 MG TABLET PO SCH (09:08)
[2016-06-01] MEDS: NIFEdipine XL (24 HR) 60 MG TAB.ER.24 PO SCH (09:08)
[2016-06-01] MEDS: Folic Acid 1 MG TABLET PO SCH ×2 (09:08→22:25)
[2016-06-01] MEDS: Insulin LISPRO 300 UNITS/3 ML VIAL SQ SCH ×3 (09:27→22:22)
--- NOTE | 2016-06-01 10:32 | Pre-Sedation Evaluation ---
Pre-sedation evaluation - Pre-sedation checklist Date of procedure: 06/01/16 Procedure: Arch aortogram and right upper extremity angiogram Recent Vitals: Last Vital Signs Temp 98.1 F 06/01/16 06:34 Pulse 86 06/01/16 06:34 Resp 18 06/01/16 06:34 BP 137/67 06/01/16 06:34 Pulse Ox 96 06/01/16 06:34 H&P (including ROS) documented in medical record: Yes Dietary Status: NPO after Midnight Possible difficult airway: No ASA Classification *see protocol: CLASS III-Severe systemic disease Plan of Care: Pt appropriate candidate for procedure/moderate/conscious sedation , Risks/benefits of procedure/sedation discussed w/ patient/family
--- NOTE | 2016-06-01 12:41 | Electrocardiograph Report ---
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
--- NOTE | 2016-06-01 12:41 | Electrocardiograph Report ---
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
--- NOTE | 2016-06-01 12:58 | Internal Med Progress Note ---
Date of Encounter: 06/01/16 Time of Encounter: 10:45 - Assessment and plan (1) Ischemia of finger Current Visit: Yes Status: Acute Assessment and plan: Appreciate vascular surgery input. (Dr. Cox). Plan for angiograpy of the right upper extremity today. Patient may be a candidate for catheter directed thrombo-lysis or intra-arterial vasodilato. Continue heparin drip, PTT in therapeutic range (49-61). Patient is currently on a calcium channel socorro. We may also consider nitropaste. (2) PAF (paroxysmal atrial fibrillation) Current Visit: Yes Status: Inactive Assessment and plan: -Patient has a history of paroxysmal atrial fibrillation controlled with Flecainide 100mg PO q12hr. CHADs-VASC score is 1. Patient was not on anticoagulation prior to hospitalization. echocardiogram showed LVEF 70%, moderate LVH, mild diastolic dysfunction. currently in sinus rhythm. Appreciate cardiology input, may need to start chronic anticoagulation. (3) Hypertension Current Visit: Yes Status: Chronic Assessment and plan: episodes of elevated BP, could be from pain. continue procardia. Qualifiers: Hypertension type: essential hypertension Qualified Code(s): I10 - Essential (primary) hypertension (4) Rheumatoid arthritis Current Visit: Yes Status: Chronic Assessment and plan: - Patient follows with Rheumatology at [facility] - Is on methotrexate 25mg PO, Prednisone 10mg PO qday and Sulfasalazine 500mg PO BID for her RA - Denies any known flares in the past couple of months Qualifiers: Rheumatoid arthritis location: hand Rheumatoid factor presence: unspecified presence Laterality: bilateral Qualified Code(s): M06.9 - Rheumatoid arthritis, unspecified (5) Chronic use of steroids Current Visit: Yes Status: Acute Assessment and plan: 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 would consider stress dose steroids if she dose have a surgical procedure. (6) Elevated glucose level Current Visit: Yes Status: Acute Assessment and plan: - Elevated glucose at 188. Likely steroid induced. Sliding scale for coverage . - ADA diet (7) Neck pain Current Visit: Yes Status: Acute Assessment and plan: resolved. No fever, confusion, alteration in mentation to suggest an infectious etioogy. - In addition to her home RA medications. - Cervical spine flexion/extension were normal with mild C6-7 degenerative disc and joint disease. Normal alignment with no evidence of instability on flexion/ extension. - We will continue to monitor. (8) Fibromyalgia Current Visit: Yes Status: Acute Assessment and plan: - Resume patient on Effexor Xr 75mg PO qday - Subjective Interval history: Patient reports pain in right finger is controlled with meds. no bleeding. - Constitutional Vitals: Temp Pulse Resp BP Pulse Ox 98.3 F 103 17 158/81 95 06/01/16 10:56 06/01/16 10:56 06/01/16 10:56 06/01/16 10:56 06/01/16 10:56 General appearance: Present: cooperative, A&O X 3, pleasant, no acute distress, answers questions appropriately - Respiratory Respiratory exam: Present: CTAB - Cardiovascular Cardiovascular exam: Present: RRR - GI/Abdominal GI/Abdominal exam: Present: normal bowel sounds, soft. Absent: distended, tenderness - Extremities Exam Additional comments: right fourth finger: the erythema and cyanosis extends to the DIP and seems to be resolving. there are no other signs of ischemia in the digits of her upper and lower extremities. - Back Exam Back exam: Absent: CVA tenderness (L), CVA tenderness (R) - Neurological Exam Neurological exam: Present: alert, oriented X3, no focal deficits, strengths equal and symetr throughout. Absent: facial droop, speech deficit - Skin Skin exam: Absent: rash Internal Medicine: Result - Labs CBC & Chem 7: 06/01/16 02:45 06/01/16 02:45 Labs: Short CBC 06/01/16 Range/Units 02:45 WBC 7.9 (4.3-11.1) K/mcL Hgb 11.2 L (11.5-15.4) g/dL Hct 33.5 L (35.3-44.9) % Plt Count 187 (140-400) K/mcL Neutrophils # 6.2 (1.6-8.9) K/mcL BMP 06/01/16 02:45 Sodium 141 Potassium 4.5 D Chloride 108 Carbon Dioxide 25 BUN 19 Creatinine 1.10 Glucose 173 H Calcium 9.2 - ABG Interpretation ABG results: PT/INR, D-dimer PT 12.4 Seconds (9.4-12.1) H 05/30/16 19:30 - Impressions Impressions Chest X-Ray 06/01/16 01:59 IMPRESSION: No evidence of heart failure or no acute consolidation. D/ / Damaso Puckett MD / Damaso Puckett MD Interpreting Provider: Damaso Puckett MD Consult Discharge Plan - Plan Referrals: Fernandez Ken DO [Primary Care Provider] - 06/07/16 2:40 pm
[2016-06-01] MEDS ORDERED: Heparin 1,000 UNITS/500 mL NS 500 ML ONE (13:48)
[2016-06-01] MEDS ORDERED: *HR* Heparin 10,000 UNIT/10 ML VIAL ONE (13:48)
[2016-06-01] MEDS ORDERED: 0.9 % Sodium Chloride 1,000 ML ONE ×2 (13:48→15:09)
--- NOTE | 2016-06-01 14:20 | Cardiology Progress Note ---
Date of Encounter: 06/01/16 Time of Encounter: 14:17 Assessment and Plan (1) PAF (paroxysmal atrial fibrillation) Current Visit: Yes Status: Inactive Per Cardiology: Past history of paroxysmal atrial fibrillation with rhythm control strategy of flecainide be managed by her primary consulting services associate Dr. Laguerre in [place]. ECG shows sinus rhythm at 69 with QRS 138 ms and QT/QTC 450/468 ms. Telemetry review shows NSR with no evidence of afib. Avg HR 93bpm. TTE shows EF 70%, moderate LVH, mild diastolic dysfunction. No significant valvular disease. Regarding long-term anticoagulation, [id number]= 1 (Female). Patient apparently unaware of need for anticoagulation for her afib and on flecanide. She reports she's been instructed to take aspirin by her primary consulting services associate, but has not been taking for some time due to reported "eye clots" with aspirin that she describes as superficial broken blood vessels, no actual blood clot seen in her eye by her eye doctor. Currently on IV heparin drip with concerns of right ring finger thrombosis. Anticoagulation with coumadin or NOAC for afib discussed with patient. Indications, alternatives, use and side effects discussed and she would like to start/ trail an NOAC. We discussed starting Xarelto and she is agreeable if there is thrombosis in her arm. She is concerned about cost for both coumadin or newer agent d/t no insurance. Free thirty day card placed on chart. She would like to apply for patient assistance. Pt would like to f/u with her consulting services associate Dr. Laguerre. (2) Ischemia of finger Current Visit: Yes Status: Acute Planning for Right upper extremity angiogram today with Dr. Cox. Discussion w patient/family: The assessment and plan as outlined above was discussed with the patient and/or family members who expressed understanding and agreement. All questions were answered. Thank you for involving us in the care of your patient. Please call with any questions. Subjective Principal diagnosis: ischemic digit Interval history: Continues to have discoloration and numbness in her ring finger. Denies palpitations. Objective Vital Signs, Last 4 Hours Temp Pulse Resp BP Pulse Ox 06/01/16 10:56 98.3 F 103 17 158/81 95 General: Conversant, No Apparent Distress HEENT: Atraumatic, Normocephaly, Mucus Membranes Moist Neck: No JVD, Normal carotid pulses Cardiac: Reg Rate and Rhythm, Normal S1 and S2, No Murmur Lungs: Normal Breath Sounds, No Wheeze, Rales, Rhonchi Neuro: Alert and responsive, No focal deficits noted Abdomen: Soft, Non-Tender Skin: No rashes noted on visualized skin, Other (right ring finger tip with discoloration. ) Musculoskeletal: No Chest Wall Tenderness Extremities: No Clubbing, No Cyanosis, No Edema, Normal Pulses Results 06/01/16 02:45 06/01/16 02:45 Lab Results 05/31/16 05/31/16 06/01/16 14:38 21:20 02:45 WBC 7.9 Hgb 11.2 L Hct 33.5 L Plt Count 187 APTT 49.8 H D 62.5 H Sodium Potassium Chloride Carbon Dioxide BUN Creatinine Glucose Calcium 06/01/16 06/01/16 02:45 03:13 WBC Hgb Hct Plt Count APTT 61.2 H Sodium 141 Potassium 4.5 D Chloride 108 Carbon Dioxide 25 BUN 19 Creatinine 1.10 Glucose 173 H Calcium 9.2 - Imaging and Cardiology Echo: report reviewed - EKG Interpretation EKG results cardiology: personally reviewed Consult Discharge Plan - Plan Referrals: Fernandez Ken DO [Primary Care Provider] - 06/07/16 2:40 pm
[2016-06-01] MEDS ORDERED: *HR* Midazolam HCl 2 MG/2 ML VIAL ONE (15:02)
[2016-06-01] MEDS ORDERED: *HR* FentaNYL (PF) 100 MCG/2 ML VIAL ONE (15:02)
[2016-06-01] MEDS ORDERED: *HR* Metoprolol 5 MG/5 ML VIAL IVP ONE ×4 (15:55→16:53)
[2016-06-01] MEDS ORDERED: Nitroglycerin 1,000 MCG/10 ML VIAL IV ONE (16:09)
--- NOTE | 2016-06-01 16:37 | Procedure Note ---
Date of procedure: 06/01/16 Pre-op diagnosis: Ischemic right ring finger Post-op diagnosis: same Procedure: Arch aortogram Selective right upper extremity angiogram and right hand angiogram Intra-arterial injection of nitroglycerin 2 via left ulnar artery at wrist Anesthesia: MAC Surgeon: Christopher Cox Condition: stable Disposition: floor (Medical treatment for chronic digital artery occlusions)
--- NOTE | 2016-06-01 17:15 | Electrocardiograph Report ---
[place] [address] Test Date: 2016-05-31 Pat Name: Adrianna Mann Department: 115 Room: 3A48 Gender: F Perianesthesia Rn: DANIELITO : 1955 Requested By: Criss Haynes Order Number: [id number] Reading MD: Tiffany Bustos Measurements Intervals [place] Rate: 69 P: 58 [place]: 138 QRS: 57 QRSD: 90 T: 63 QT: 450 QTc: 468 Interpretive Statements SINUS RHYTHM Electronically Signed On 06-01-2016 17:13:49 EDT by Tiffany Bustos
[2016-06-01] MEDS: Nitroglycerin 1 INCH/GM PACKET TP SCH (17:25)
--- NOTE | 2016-06-01 17:27 | Invasive Diagnostic Lab Proc ---
Name: Adrianna Mann Date of Study: 06/01/2016 Date: 1955 Ht: 165.0 in Medical Record#: [id number] Age: 60 Wt: 120 lb Gender: Female BSA: 2.23 Order #: [id number] BMI: 44.08 Physicians Performing MD: Christopher Cox MD, FACS Referring MD: Referring MD: Staff Name Position Time In Kandace Covarrubias RN Scrub Julianna Angel RN Net Technical Architect Diana Ace RN Monitor Indications Discoloration of Extremity Pain of Extremity Procedures Performed ANGIOGRAM, EXT UNILAT S\\T\\I AORTOGRAPHY, ABDOMINAL S\\T\\I Pre-Procedure Checklist Informed consent is complete signed and on chart. H\\T\\P is on chart. ID band is on and ID verified with patient. Patient NPO for procedure The procedure was described for the patient and questions were answered. Blood Pressure: 137/67 ECG is on chart. Rhythm: NSR Plan of Care Patient will tolerate the procedure without complications. Adequate level of comfort will be maintained. Hemodynamics will remain stable Patient will recover from procedure without complications. Respiratory function will be maintained. Cardiac rhythm will remain stable. Patient temperature will be maintained. Patient and/or family have verbalized understanding of the procedure. Patient Education Chief Complaint/Reason for Test: Peripheral angiogram Developmental Category: Adult (18-64 years) Learning Barriers: None Education Needs: Procedure Education Method: Verbal Information Taught: Peripheral angiogram Educational Evaluation: Able to repeat information Intravenous Access Time IV Size Location DC'd Fluid/Drip Rate Units RN 13:38 22g 1" Patent On Arrival Lt Arm Allergies azithromycin Remicade Vital Signs Time BP Systolic BP Diastolic HR O2 Sats ASA 01:39 PM 137 67 86 96 03:17 PM 03:17 PM 03:29 PM 03:45 PM 04:00 PM 04:15 PM 03:14 PM 182 82 90 96 03:19 PM 170 78 83 98 03:24 PM 171 82 82 95 03:29 PM 169 79 79 98 03:34 PM 165 87 82 97 03:41 PM 181 84 81 96 03:44 PM 195 84 87 96 03:50 PM 192 78 81 97 03:54 PM 187 87 81 96 04:00 PM 206 77 72 97 04:05 PM 198 84 73 97 04:09 PM 198 84 73 98 04:15 PM 194 83 74 96 04:19 PM 192 80 73 97 04:24 PM 193 79 66 97 04:34 PM 201 82 71 98 04:38 PM 194 97 68 97 04:45 PM 185 96 68 97 05:04 PM 136 77 63 98 Procedure Medications Time Medication Dose Units Method Route 03:16 PM Oxygen 2 L/min nasal cannula 03:16 PM Versed 1 mg Intravenous 03:16 PM Fentanyl 100 mcg Intravenous 03:26 PM Lidocaine 2% 10 ml Subcutaneous 03:31 PM Lidocaine 2% 10 ml Subcutaneous 03:56 PM Lopressor 5 mg Intravenous 03:57 PM Versed 1 mg Intravenous 04:12 PM Nitroglycerin 100 mcg Intraarterial 04:18 PM Metoprolol 5 mg Intravenous 04:19 PM Nitroglycerin 100 mcg Intraarterial 04:29 PM Plavix 150 mg Orally 04:33 PM Lopressor 5 mg Intravenous 04:51 PM Lopressor 5 mg Intravenous ASA Classification: CLASS III- Severe systemic disease (i.e. prior AMI, diabetes with vascular complications, morbid obesity) Candice Score Preprocedure Postprocedure Activity 2- Moves 4 extremities sustained head lift Activity 2- Moves 4 extremities sustained head lift Circulation 2- SBP +/= 20 points of pre-anesthetic level Circulation 2- SBP +/= 20 points of pre-anesthetic level Consciousness 2- Awake and alert oriented x 3 Consciousness 2- Awake and alert oriented x 3 O2 Saturation 2- Able to maintain O2 satruation of 92% on room air O2 Saturation 2- Able to maintain O2 satruation of 92% on room air Respiratory 2- Able to deep breathe and cough well Respiratory 2- Able to deep breathe and cough well Total Score 10 Total Score 10 Contrast: Isovue 300- 150ml Contrast Amount: 39 ml Fluoro Dose: 480 mGy Procedure Log Time Note Entered By 03:09 PM Pt arrived to labourers 1 at 15:09 ejohnson 03:09 PM Cara Fox RT (R) Position: Scrub Time in: 15:09 ejohnson 03:09 PM Julianna Angel RN Position: Net Technical Architect Time in: 15:09 ejohnson 03:09 PM Diana Ace RN Position: Monitor Time in: 15:09 ejohnson 03:09 PM Case delayed: No ejohnson 03:10 PM Hair removed from procedure site in procedure lab using clippers. Bilateral groin prepped with Chloraprep by Cara Fox (R), safety strap applied then patient was draped. Skin intact. ejohnson 03:10 PM Physician arrived 15:10 ejohnson 03:10 PM ASA Class CLASS III- Severe systemic disease (i.e. prior AMI, diabetes with vascular complications, morbid obesity) ejohnson 03:10 PM Meet and morgan completed ejohnson 03:10 PM Sign in performed according to hospital policy. ejohnson 03:10 PM Procedure start 15:10 ejohnson 03:16 PM 15:16 Oxygen at 2 L/min per nasal cannula by Julianna Angel RN ejohnson 03:16 PM 15:16 Versed 1 mg Intravenous Given by Julianna Angel RN ejohnson 03:16 PM 15:16 Fentanyl 100 mcg Intravenous Given by Julianna Angel RN ejohnson 03:17 PM Time: 15:17 Is patient comfortable and pain free?: Yes ejohnson 03:17 PM Time: 15:17LOC: 5 = Fully awake and oriented or at pre-proc level ejohnson 03:22 PM Time out perfomed ejohnson 03:26 PM 15:26 10 ml Lidocaine 2% to right groin Subcutaneous Given By Christopher Cox MD, FACS ejarnson 03:26 PM Patient charges- Angio tray pack, Pulse Oximetry and ACIST tubing and transducer ejohnson 03:26 PM Smart Needle utilized for vascular access at this time ejohnson 03:29 PM Time: 15:17 Is patient comfortable and pain free?: Yes ejohnson 03:29 PM Time: 15:17LOC: 5 = Fully awake and oriented or at pre-proc level ejohnson 03:31 PM 15:31 10 ml Lidocaine 2% to right groin Subcutaneous Given By Christopher Cox MD, FACS ejarnson 03:27 PM Unsuccessful access attempt # 1 into the right Femoral artery. Manual pressure applied to achieve hemostasis.. ejohnson 03:33 PM Access obtained in the right femoral artery by percutaneous puncture. 5 Fr. 10 cm Terumo [place] sheath placed in right femoral artery ejohnson 03:33 PM 5Fr Short pigtail catheter inserted over the wire ejohnson 03:34 PM J wire removed ejohnson 03:36 PM Abdominal aorta angiography performed in AP contrast injected 25 mls. ejohnson 03:38 PM Catheter removed over the wire ejohnson 03:38 PM 5Fr Tate 2 catheter inserted over the wire ejohnson 03:40 PM 5ml of contrast hand injected per Dr. Kenny perry 03:44 PM Wire removed ejohsandra 03:44 PM 0.035 260cm Scobey-angled wire utilized to assist with catheter placement ejohnson 03:44 PM Time: 15:29 Is patient comfortable and pain free?: Yes ejohlaxmion 03:45 PM Time: 15:29LOC: 5 = Fully awake and oriented or at pre-proc level ejohnsmary lou 03:45 PM 8 ml of contrast hand injected per Dr. Kenny perry 03:54 PM wire removed ejohsandra 03:55 PM 2ml of contrast hand injected per Dr. Kenny perry 03:56 PM Time: 15:56 Lopressor 5 mg Intravenous Given by Julianna Angel RN ejohnsmary lou 03:57 PM 15:57 Versed 1 mg Intravenous Given by Julianna Angel RNohsandra 04:00 PM 2ml of contrast hand injected per Dr. Kenny perry 04:00 PM Time: 15:44 Is patient comfortable and pain free?: Yes ejohsandra 04:02 PM wire reinserted to reposition catheter ejohnson 04:06 PM catheter in right ulnar artery ejohsandra 04:08 PM 3ml of contrast hand injected per Dr. Kenny perry 04:12 PM Time: 16:12 Nitroglycerin 100 mcg Intraarterial (right ulnar artery) Given by Christopher Cox MD, FACS ejohnson 04:06 PM 4Fr Berenstein catheter inserted over the wire ejohsandra 04:05 PM Catheter removed ejohsandra 04:15 PM Time: 16:00 Is patient comfortable and pain free?: Yes ejohnson 04:15 PM Time: 16:00LOC: 5 = Fully awake and oriented or at pre-proc level vicky 04:15 PM 3ml of contrast hand injected per Dr. Kenny ejohnson 04:19 PM Time: 16:18 Metoprolol 5 mg Intravenous Given by Julianna Angel RN ejohnson 04:19 PM Time: 16:19 Nitroglycerin 100 mcg Intraarterial Given by Christopher Cox MD, FACS ejohnson 04:21 PM 2ml of contrast hand injected per Dr. Cox ejohnson 04:26 PM Catheter removed over the wire ejohnson 04: PM Procedure completed at 16:26 ejohnson 04:27 PM Sign Out completed: Radiation Dose 479.95 mGy Fluoro Time: 14.2 minutes. Isovue 300- 150ml contrast 39 ml given by Christopher Cox MD, FACS. Complications: None. Confirmed administered medications:Yes ejohnson 04:27 PM Post Blood Pressure: 193/79 ejohnson 04:27 PM Post EKG: NSR ejohnson :27 PM 16:27 Post Pulses: Rt DP 2+. ejohnson 04:28 PM Information taught: Peripheral angiogram ejohnson 04:28 PM Education needs: Plan of Care and Responsibilities of Patient in Care ejohnson 04:28 PM Learning barriers: None ejohnson 04:28 PM Education methods: Verbal ejohnson 04:28 PM Education evaluation: Able to repeat information ejohnson 04:28 PM Patient pain level 0/10 ejohnson 04:28 PM Family placed in consult room. ejohnson 04:29 PM Time: 16:29 Plavix 150 mg Orally Given by Julianna Angel RN ejohnson 04:30 PM Time: 16:15LOC: 5 = Fully awake and oriented or at pre-proc level ejohnson 04:30 PM Time: 16:15 Is patient comfortable and pain free?: Yes ejohnson 03:02 PM PVIStat 03:02 PM Case Start 03:10 PM Recorded ECG: HR=92 Condition=Condition 1 03:13 PM Vitals capture started with the following parameters, Patient=Adult, Interval=5 min, Initial Mpfjjtsx=559 mmHg, Deflation Rate=5 mmHg, Cuff placed on Left Leg 03:14 PM HR=90 bpm, HBQM=548/82 mmhg, SpO2=96.0 %, Resp=20 B/min, Comment=SR 03:19 PM HR=83 bpm, CQMM=476/78 mmhg, SpO2=98.0 %, Resp=13 B/min, Comment=SR 03:24 PM HR=82 bpm, MDVI=461/82 mmhg, SpO2=95.0 %, Resp=14 B/min, Comment=SR 03:29 PM HR=79 bpm, XHVG=475/79 mmhg, SpO2=98.0 %, Resp=19 B/min, Comment=SR 03:34 PM HR=82 bpm, NEVH=844/87 mmhg, SpO2=97.0 %, Resp=15 B/min, Comment=SR 03:41 PM HR=81 bpm, NQHP=953/84 mmhg, SpO2=96.0 %, Resp=15 B/min, Comment=SR 03:44 PM HR=87 bpm, WEZD=531/84 mmhg, SpO2=96.0 %, Resp=17 B/min, Comment=SR 03:50 PM HR=81 bpm, FJUD=415/78 mmhg, SpO2=97.0 %, Resp=18 B/min, Comment=SR 03:54 PM HR=81 bpm, ZMSW=587/87 mmhg, SpO2=96.0 %, Resp=15 B/min, Comment=SR 04:00 PM HR=72 bpm, KUIW=271/77 mmhg, SpO2=97.0 %, Resp=22 B/min, Comment=SR 04:03 PM NIBP STAT measurement started. 04:05 PM HR=73 bpm, WKWC=420/84 mmhg, SpO2=97 %, Resp=16 B/min 04:09 PM HR=73 bpm, CBHH=413/84 mmhg, SpO2=98.0 %, Resp=19 B/min, Comment=SR 04:15 PM HR=74 bpm, AYNZ=251/83 mmhg, SpO2=96.0 %, Resp=16 B/min, Comment=SR 04:19 PM HR=73 bpm, BLXR=905/80 mmhg, SpO2=97.0 %, Resp=15 B/min, Comment=SR 04:24 PM HR=66 bpm, BUJF=858/79 mmhg, SpO2=97.0 %, Resp=16 B/min, Comment=SR 04:[address] Cox going to talk to Dr. Beltran and update him about the plan/recommendation for the patient ejohnson 04:33 PM Time: 16:33 Lopressor 5 mg Intravenous Given by Julianna Angel RN ejohnson 04:37 PM Diagram Region: Lower Extremity Arteries Anatomical Region: [id number]% Lesion in Mid Right 4th digit finger Intervention done: 0 (1=yes, 0=no) ejohnson 04:51 PM Time: 16:51 Lopressor 5 mg Intravenous Given by Julianna Angel RN ejohnson 04:53 PM Arterial sheath pulled using manual compression and Vpad by Kandace Covarrubias RN ejohnson 05:10 PM pressure was held for 17 minutes, vpad removed and sterile 4x4 added and opsite ejohnson 05:19 PM Report given to Vaishali MCKENZIE. Pt taken to , Room # 48 17:19 ejohnson 05:09 PM Delay to floor: Receiving unit staff issue (code Blue in another room) ejohnson 05:20 PM Patient out of room 17:20 ejohnson Peripheral Anatomy Vessel Pathology Lesion Stenosis Aneurysm Diameter Thrombus Type Right 4th digit finger Lesion 100 Post Procedure Information Blood Pressure: 193/79 mmHg Rhythm: NSR Post procedure instructions given Report Given To: Carmen Site Checks Time Location Status Staff Sheath In? Note 06/01/2016 5:17:00 PM Rt Groin No bleeding/ No Hematoma Kandace Covarrubias RN Pulses Time Site Pre Procedure Post Procedure Note 06/01/2016 1:38:00 PM Bilateral DP \\T\\ PT 1+ 06/01/2016 1:38:00 PM Bilateral radial 2+ 4:27:00 PM Rt DP 2+ Updated by Diana Ace RN on 06/01/2016 5:20:50 PM Diana Ace RN electronically signed on 06/01/2016 5:21:15 PM with status of Final
--- NOTE | 2016-06-01 17:28 | Orthopedics Progress Note ---
Date of Encounter: 06/01/16 Time of Encounter: 16:00 - Assessment and Plan (1) Ischemia of right upper extremity Current Visit: Yes Status: Acute I did discuss the diagnosis in detail with the patient. She does have ischemic changes to the right ring finger without gangrene or necrosis. My recommendation at this point would be to continue the vascular workup per Dr. Cox. She may get symptom relief from topical Nitropaste or a calcium channel socorro. No surgical intervention recommended at this point, but should she develop necrosis or gangrene then we will readdress surgical options including debridement or amputation. I will follow the patient clinically in the hospital and as an outpatient to track her clinical progress. Subjective Principal diagnosis: ischemic digit Interval history: Attempted to see earlier, but she was getting her angiogram. At this point there is no need for urgent orthopepdic surgical intervention. She can follow up with me as an outpatient to evaluate the clinical progress of the right ring finger. I will sign off for now but will be available if any new issues arise. Objective Vital signs: Vital Signs Temp Pulse Resp BP Pulse Ox 06/01/16 14:43 98.1 F 89 18 156/77 95 06/01/16 10:56 98.3 F 103 17 158/81 95 06/01/16 06:34 98.1 F 86 18 137/67 96 06/01/16 04:00 98.3 F 87 14 156/7 97 06/01/16 02:08 98.0 F 90 16 147/61 95 06/01/16 00:05 99.8 F H 103 16 184/73 95 05/31/16 22:16 98.9 F 118 17 199/81 98 05/31/16 20:11 100.0 F H 100 16 140/77 95 Intake and Output 06/01/16 06/01/16 06/01/16 07:59 15:59 23:59 Intake Total 289 / 289 0 / 0 Output Total 600 / 600 350 / 350 Balance -311 / -311 -350 / -350 Intake: IV Fluids 289 / 289 Heparin 25,000 UNIT/500 289 / 289 ML D5W 25,000 unit In 500 ml @ 14 UNIT/KG/HR 33. 784 mls/hr IVC .[id number] [facility] Rx#:[id number] Oral 0 / 0 0 / 0 Output: Urine 600 / 600 350 / 350 Other: Meal NPO Percent of Meal Consumed 0% Weight 120.287 kg Blood Glucose* 188 122 Patient Weight 06/01/16 23:59 Weight 120.287 kg - Labs CBC & BMP: 06/01/16 02:45 06/01/16 02:45 Labs: Abnormal lab results RBC 3.56 M/mcL (3.82-4.97) L 06/01/16 02:45 Hgb 11.2 g/dL (11.5-15.4) L 06/01/16 02:45 Hct 33.5 % (35.3-44.9) L 06/01/16 02:45 RDW 15.2 % (11.5-14.5) H 06/01/16 02:45 ESR 21 mm/hr (0-15) H 05/30/16 16:00 PT 12.4 Seconds (9.4-12.1) H 05/30/16 19:30 APTT 61.2 Seconds (26.0-36.0) H 06/01/16 03:13 Heparin Anti-Xa, Unfract 0.93 IU/mL (0.30-0.70) H 05/31/16 07:42 Est GFR (Non-Af Amer) 51 (> 60) L 06/01/16 02:45 Glucose 173 mg/dL (70-99) H 06/01/16 02:45 POC Glucose 188 (58-89) H 06/01/16 05:21 C-Reactive Protein 10 mg/L (Less than 5) H 05/30/16 16:00 Consult Discharge Plan - Plan Referrals: Fernandez Ken DO [Primary Care Provider] - 06/07/16 2:40 pm
[2016-06-01] MEDS: *HR* HYDROcodone/Acet 5/325 mg TABLET PO PRN ×2 (17:35→22:29)
--- NOTE | 2016-06-01 19:09 | Invasive Diagnostic Lab ---
Name: Adrianna Mann Date of Study: 06/01/2016 Date: 1955 Ht: 165.0 in Medical Record#: [id number] Age: 60 Wt: 120 lb Gender: Female BSA: 2.23 Order #: [id number] Fluoro: 480 mGy BMI: 44.08 Procedure MD: Christopher Cox MD, FACS Procedures Performed: ANGIOGRAM, EXT UNILAT S\T\I AORTOGRAPHY, ARCH S\T\I INTRA ARTERIAL MEDICAL THERAPY/ DRUG ADMINISTRATION Indications: Discoloration of Extremity Pain of Extremity Impressions: The Aortic arch is normal in appearance and free of obstructive disease. The Right upper extremity arteries proximal to the wrist are patent. The Right 4Th finger digital vessels are occluded. Scattered areas of the remaining right digital vessels are irregular or occluded. No signs of acute emboli. No signs of Buerger's Disease. Recommendations: Optimize medical therapy of patient's diseases, including topical NTG to right 4 th finger. 75 mg Plavix PO daily. Discontinue IV heparin drip. No further Vascular Surgery intervention indicated. Follow up with PCP for medical management as out patient Follow up with Ortho/Hand for digital tissue loss prn History/ Risk Factors: Hypertension Technique: After informed consent was obtained the patient was placed on the angiographic table. The access areas were prepped and draped in the usual sterile fashion. A timeout protocol was observed. Access was obtained in the right femoral artery. The pigtail catheter was advanced over a wire to the suprarenal aorta and an arch aortogram was obtained. The catheter was exchanged for a [employer] 2 catheter and the right subclavian was selectively canulated. The following images were obtained: Right Subclavian/Axillary/Brachial/Radial/Ulnar. A critical lesion was seen on the angiogram and a decision was made to proceed to an intervention. The 4 Fr. Patienceenstein catheter was advanced over the wire into the distal right ulnar artery at the level of the wrist. Selective angiograms were then obtained of the right hand and digits. Intervention was then undertaken with direct intra arterial infusion of NTG. Two boluses of 100 micrograms each were administered to the right hand with completion angiograms obtained after each infusion. The sheath was then removed and hemostasis achieved with manual pressure and Closure pad. Vessel Findings: * Cerebrovascular Veins There is a lesion present with 100% stenosis, in the right 4 th digital vessels. An intervention was performed on this Lesion with intra arterial vasodilator therapy. Only mild to minimal improvement noted in right 4 th digit. Significant improvement noted in adjacent hand and digital vessels. Lesions: Right 4 th finger digital vessels Stenosis: 100% Residual Stenosis: 100% Total Contrast: Isovue 300- 150ml 39mls Updated by Christopher Cox MD, FACS on 06/01/2016 6:55:15 PM Christopher Cox MD electronically signed on 06/01/2016 7:05:28 PM with status of Final
[2016-06-01] MEDS: Famotidine 20 MG TABLET PO SCH (22:25)
[2016-06-02] MEDS: *HR* Morphine 2 MG/ML SYRINGE IVP PRN (01:10)
[2016-06-02] MEDS: *HR* HYDROcodone/Acet 5/325 mg TABLET PO PRN (02:34)
[2016-06-02] MEDS ORDERED: *HR* HYDROcodone/Acet 7.5/325 mg TABLET PO PRN (04:30)
[2016-06-02 04:31] LABS: Basophils % 0.3 %; Eosinophils # 0.1 K/mcL (0.0-0.6); Eosinophils % 0.7 %; Hematocrit 34.1 % (35.3-44.9); Hemoglobin 11.3 g/dL (11.5-15.4); Immature Granulocytes % 0.4 % (0-4); Lymphocytes # 2.6 K/mcL (0.6-4.6); Lymphocytes % 36.9 %; Mean Corpuscular HGB Conc 33.1 g/dL (31.6-35.5); Mean Corpuscular Hemoglobin 31.6 pg (28.0-33.3); Mean Corpuscular Volume 95.3 fL (83.0-100.0); Mean Platelet Volume 10.9 fL (9.4-12.4); Monocytes # 0.7 K/mcL (0.0-1.3); Monocytes % 9.6 %; Neutrophils # 3.7 K/mcL (1.6-8.9); Platelet Count 174 K/mcL (140-400); Red Blood Count 3.58 M/mcL (3.82-4.97); Red Cell Distribution Width 15.4 % (11.5-14.5); Segmented Neutrophils % 52.1 %
[2016-06-02 04:47] LABS: BUN/Creatinine Ratio 12 (6-26); Blood Urea Nitrogen 11 mg/dL (7-20); Calcium 8.8 mg/dL (8.6-10.8); Carbon Dioxide 27 mEq/L (19-29); Chloride 108 mEq/L (98-109); Glucose 143 mg/dL (70-99); Magnesium 1.8 mg/dL (1.6-2.6); Osmolality,Calculated 298 (280-300); Potassium 3.6 mEq/L (3.5-4.5); Sodium 143 mEq/L (136-145); eGFR For African Americans > 60 (> 60); eGFR For Non-African Americans > 60 (> 60)
[2016-06-02] MEDS: Nitroglycerin 1 INCH/GM PACKET TP SCH ×2 (05:55→13:45)
[2016-06-02] MEDS: Heparin 25,000 UNIT/500 ML D5W 25,000 UNIT/500 ML MLS IVC SCH ×3 (07:38→07:40)
[2016-06-02] MEDS: Insulin LISPRO 300 UNITS/3 ML VIAL SQ SCH ×3 (07:39→13:41)
[2016-06-02] MEDS: sulfaSALAzine 500 MG TABLET PO SCH (09:51)
[2016-06-02] MEDS: Aspirin Enteric Coated 81 MG Tablet PO SCH (09:51)
[2016-06-02] MEDS: Folic Acid 1 MG TABLET PO SCH (09:51)
[2016-06-02] MEDS: Venlafaxine XR (24 HR) 75 MG CAP.ER.24H PO SCH (09:51)
[2016-06-02] MEDS: NIFEdipine XL (24 HR) 60 MG TAB.ER.24 PO SCH (09:51)
[2016-06-02] MEDS: predniSONE 10 MG TABLET PO SCH (09:51)
[2016-06-02 10:45] VITALS: BP 142/62
--- NOTE | 2016-06-02 11:01 | Discharge Summary ---
Date of Encounter: 06/02/16 Time of Encounter: 10:58 - Discharge Diagnosis (1) Ischemia of finger Priority: Primary Status: Acute (2) PAF (paroxysmal atrial fibrillation) Priority: Secondary Status: Chronic (3) Hypertension Priority: Secondary Status: Chronic Qualifiers: Hypertension type: essential hypertension Qualified Code(s): I10 - Essential (primary) hypertension (4) Rheumatoid arthritis Priority: Secondary Status: Chronic Qualifiers: Rheumatoid arthritis location: hand Rheumatoid factor presence: unspecified presence Laterality: bilateral Qualified Code(s): M06.9 - Rheumatoid arthritis, unspecified (5) Chronic use of steroids Priority: Secondary Status: Acute (6) Elevated glucose level Priority: Primary Status: Acute (7) Neck pain Priority: Primary Status: Resolved (8) Fibromyalgia Priority: Secondary Status: Chronic - Discharge Medications Prescriptions: HYDROcodone/Acet 7.5/325 mg [[place] 7.5-325 mg] 1 tab PO Q6HR PRN #14 tablet PRN Reason: moderate pain 4-6 Clopidogrel [Plavix] 75 mg PO DAILY #30 tablet NIFEdipine XL (24 HR) [Procardia XL] 60 mg PO DAILY #30 tab.er.24 Nitroglycerin 1 inch TP Q6HNTG #14 packet Home Medications: Flecainide 100 mg PO Q12HR 05/30/16 [History] Folic Acid 1 mg PO BID 05/30/16 [History] Meclizine HCl [Verticalm] 25 mg PO HS 05/30/16 [History] Methotrexate [Otrexup] 25 mg PO ADAMS 05/30/16 [History] Omeprazole [PriLOSEC] 40 mg PO DAILY 05/30/16 [History] Oxycodone HCl/Acetaminophen [Percocet 5-325 mg Tablet] 1 each PO Q6H PRN [History] PredniSONE 10 mg PO DAILY 05/30/16 [History] Promethazine [Phenergan] 25 mg PO Q6H PRN 05/30/16 [History] Ranitidine HCl [Acid Distribution Coordinator] 150 mg PO HS 05/30/16 [History] Sulfasalazine [Azulfidine] 500 mg PO BID 05/30/16 [History] Venlafaxine XR (24 HR) [Effexor XR] 75 mg PO DAILY 05/30/16 [History] Atenolol [Tenormin] 50 mg PO DAILY #0 06/02/16 [Rx] Clopidogrel [Plavix] 75 mg PO DAILY #30 tablet 06/02/16 [Rx] HYDROcodone/Acet 7.5/325 mg [[place] 7.5-325 mg] 1 tab PO Q6HR PRN #14 tablet [Rx] NIFEdipine XL (24 HR) [Procardia XL] 60 mg PO DAILY #30 tab.er.24 06/02/16 [Rx] Nitroglycerin 1 inch TP Q6HNTG #14 packet 06/02/16 [Rx] Allergies/Adverse Reactions: Allergies azithromycin [From Zithromax] Adverse Reaction (Verified 05/30/16 14:30) Nausea infliximab [From Remicade] Adverse Reaction (Verified 05/30/16 14:30) See Comments Procedures/tests Complete & Pending: Procedures Performed prior 72 hours Category Date Time Status CL Peripheral Angiography [CL] Routine Appliance Parts Counter Clerk 05/31/16 21:06 Completed ECG 12 lead ECG [ECG] Routine Y 05/31/16 Completed ECG 12 lead ECG [ECG] Routine Y 05/31/16 09:49 Completed ECG 12 lead ECG [ECG] Stat Y 05/31/16 10:40 Completed EV echocardiogram Stat Y 05/31/16 09:31 Completed Date of admission: 05/30/16 18:53 Primary care physician: Fernandez Ken DO Consults: 05/30/16 19:05 Consult to Vascular Surgery [CONS] Routine Consulting Provider: Vascular Surgery [facility] Reason for Consult: cyanotic R ring finger Time Notified: 19:07 Call Completed: No 05/31/16 10:40 Consult to Cardiology [CONS] Routine Comment: Consulting Provider: Cardiology Ada Reason for Consult: atrial fibrilliation. Not on coumadi. patient admitted for ischemic finger of the left hand. Vascular surgery also requesting Cardiology is consulted. Call Completed: No Consult to Orthopedic Surgery [CONS] Routine Consulting Provider: [facility] Reason for Consult: ischemic ring finger of the right hand Call Completed: No - Patient Status Disposition: Home, Self-Care Condition: Good Functional capacity at discharge: independent ambulation - Discharge Instructions Follow Up With: Fernandez Ken DO [Primary Care Provider] - 06/07/16 2:40 pm Forms: ED Satisfaction Letter, Work/School Release - Diet and Activity Activity: resume usual activities as tolerated Diet: low fat, low cholesterol, low salt diet, other (AVOID SWEETS) Interval History: Patient reports improvement in pain at distal right fourth digit. Hospital course: Ms. Mann is a 60 year old female with past medical history of atrial fibrillation on aspirin, rheumatoid arthritis, fibromyalgia, and hypertension who presented with a chief complaint of discolored right fourth finger with associated pain. Given concern for acute limb ischemia, she was started on IV heparin drip and oral calcium channel blockers. She underwent arch aortogram with selective right upper extremity angiogram and right hand angiogram showing chronic digital artery occlusion. Heparin drip was discontinued. She received oral plavix and nitroglycerin patch to her distal fourth digit with continued improvement of her symptoms. PLAN: Continue oral Plavix and nitroglycerin patch. Patient will follow-up with her material handler loader at [facility] for digital artery occlusion, further recommendation of chronic anticoagulation given chads-vasc score of 2 and elevated glucose level. Patient verbalized understanding and agreed with the plan. I answered all her questions. - Time Spent with Patient Total time spent providing and/or coordinating discharge services: - Constitutional Vitals: Temp Pulse Resp BP Pulse Ox 97.7 F 86 18 142/62 93 06/02/16 10:40 06/02/16 10:40 06/02/16 10:40 06/02/16 10:40 06/02/16 10:40 General appearance: Present: cooperative, A&O X 3, pleasant, no acute distress, answers questions appropriately - Respiratory Respiratory exam: Present: CTAB - Cardiovascular Cardiovascular exam: Present: RRR - GI/Abdominal GI/Abdominal exam: Present: normal bowel sounds, soft. Absent: distended, tenderness - Extremities Exam Extremities exam: Absent: pedal edema - Back Exam Back exam: Absent: CVA tenderness (L), CVA tenderness (R) - Neurological Exam Neurological exam: Present: alert, oriented X3, no focal deficits, strengths equal and symetr throughout. Absent: facial droop, speech deficit - Skin Skin exam: Present: cyanosis (right fourth finger: there is a nitroglycerin patch applied to distal area. the erythema and cyanosis extends to the DIP and seems to be resolving. there are no other signs of ischemia in the digits of her upper and lower extremities.)
--- NOTE | 2016-06-02 11:18 | Cardiology Progress Note ---
Date of Encounter: 06/02/16 Time of Encounter: 11:00 Assessment and Plan (1) PAF (paroxysmal atrial fibrillation) Current Visit: Yes Status: Inactive Per Cardiology: Past history of paroxysmal atrial fibrillation with rhythm control strategy of flecainide be managed by her primary dynamicist Dr. Laguerre in [place]. ECG shows sinus rhythm at 69 with QRS 138 ms and QT/QTC 450/468 ms. Telemetry review shows NSR with no evidence of afib. Avg HR 93bpm. TTE shows EF 70%, moderate LVH, mild diastolic dysfunction. No significant valvular disease. Regarding long-term anticoagulation, [id number]= 2 (Female and now PVD). Patient apparently unaware of need for anticoagulation for her afib and on flecanide. She reports she's been instructed to take aspirin by her primary dynamicist, but has not been taking for some time due to reported "eye clots" with aspirin that she describes as superficial broken blood vessels, no actual blood clot seen in her eye by her eye doctor. No blood clot seen in right upper extremity. 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 Plavix was recommended by vascular surgery. Pt would like to f/u with her dynamicist Dr. Laguerre and discuss need for anticoagulation if she tolerates plavix. Please call with questions. (2) Ischemia of finger Current Visit: Yes Status: Acute Appreciate vascular recs. No thrombus. Chronic occlusion. Discussion w patient/family: The assessment and plan as outlined above was discussed with the patient and/or family members who expressed understanding and agreement. All questions were answered. Thank you for involving us in the care of your patient. Please call with any questions. Subjective Principal diagnosis: ischemic digit Interval history: Continues to have discoloration and numbness in her ring finger. Denies palpitations. No new complaints. Objective Vital Signs, Last 4 Hours Temp Pulse Resp BP Pulse Ox 06/02/16 10:40 97.7 F 86 18 142/62 93 General: Conversant, No Apparent Distress HEENT: Atraumatic, Normocephaly, Mucus Membranes Moist Neck: No JVD, Normal carotid pulses Cardiac: Reg Rate and Rhythm, Normal S1 and S2, No Murmur Lungs: Normal Breath Sounds, No Wheeze, Rales, Rhonchi Neuro: Alert and responsive, No focal deficits noted Abdomen: Soft, Non-Tender Skin: No rashes noted on visualized skin, Other (4th right finger wraped in dressing with NTG paste, purple tip. ) Musculoskeletal: No Chest Wall Tenderness Extremities: No Clubbing, No Cyanosis, No Edema, Normal Pulses Results 06/02/16 03:21 06/02/16 03:21 Lab Results 06/02/16 06/02/16 06/02/16 03:21 03:21 03:21 WBC 7.0 Hgb 11.3 L Hct 34.1 L Plt Count 174 APTT 29.8 D Sodium 143 Potassium 3.6 Chloride 108 Carbon Dioxide 27 BUN 11 Creatinine 0.89 Glucose 143 H Calcium 8.8 Magnesium 1.8 Consult Discharge Plan - Plan Referrals: Fernandez Ken DO [Primary Care Provider] - 06/07/16 2:40 pm
== END 2016-06-02 14:18 | disposition home or self-care (01) | DRG 300 ==
LOC: EMEROO 14:22 → 3ANU 14:22
PROVIDERS: ADMIT Hospitalist; ATTEND Internal Medicine